=== PATIENT | female | born 1940 | race Caucasian/White ===

== ENCOUNTER 2017-01-20 19:00 | Observation (INO) ==
[2017-01-20] MEDS ORDERED: ALBUTEROL/IPRATROPIUM 3 ML NEB RESP TX STA (19:24)
--- NOTE | 2017-01-20 19:26 | EKG Report ---
Stationary ECG Study [facility] ER Test Date: 01/20/2017 7:06:26 PM Pat Name: JAY HOUGH Department: Room: Gender: F [employer]: jessica : 1940 Requested by: Rakesh Beckman Order Number: [id number] Reading MD: CURT HAWKINS Intervals [place] Rate: 108 P: 71 [place]: 143 QRS: 269 QRSD: 184 T: 71 QT: 378 QTc: 441 Interpretive Statements ELECTRONIC VENTRICULAR PACEMAKER Electronically Signed On 01-20-17 20:44:59 CDT by CURT HAWKINS [email or web address]
[2017-01-20] MEDS ORDERED: ALBUTEROL 2.5 MG/3 ML NEB RESP TX SCH (19:30)
[2017-01-20] MEDS ORDERED: ALBUTEROL 2.5 MG/3 ML NEB RESP TX STA (19:40)
[2017-01-20] MEDS ORDERED: ALBUTEROL 2.5 MG/3 ML NEB RESP TX ONE (19:42)
[2017-01-20 19:53] LABS: Basophils % 0.4 % (0.0-0.8); Eosinophils # 0.6 10*3/uL (0.0-0.87); Eosinophils % 7.4 % (0.00-10.9); Hematocrit 32.2 VOL% (35.7-47.0); Hemoglobin 11.3 GM/DL (12.0-16.0); Immature Granulocytes % 0.4 %; Immature Granulocytes Absolute 0.03 #; Lymphocytes # 1.5 10*3/uL (1.4-4.0); Lymphocytes % 19.8 % (21.3-54.2); Mean Corpuscular HGB Conc 35.1 GM/DL (32-36); Mean Corpuscular Hemoglobin 32 PG (27-34); Mean Corpuscular Volume 89.7 FL (87-102); Mean Platelet Volume 9.8 FL (9.6-12.0); Monocytes # 0.7 10*3/uL (0.11-0.8); Monocytes % 9.2 % (1.7-12.7); Neutrophils # 4.8 10*3/uL (1.4-7.4); Neutrophils % 62.8 % (38.7-73.9); Platelet Count 220 T/CUMM (130-400); Red Blood Count 3.59 MC/CUMM (3.8-5.5); Red Cell Distribution Width 13.7 % (9.3-17.3); White Blood Count 7.6 T/CUMM (4-12)
--- NOTE | 2017-01-20 20:14 | XRay Report ---
2 view chest 01/20/2017 7: 50 PM Indication: Shortness of breath Comparison: August 07, 2016 Findings: Cardiomediastinal contours are stable with underlying cardiomegaly, plaquing arch and no change in defibrillator placement. Chronic coarsening of interstitial. No superimposed consolidative or congestive process. No acute osseous abnormalities. Visualized upper abdomen demonstrates no acute pathology. Impression: No acute cardiopulmonary findings PROCEDURE INTERPRETED AT [facility] DEPARTMENT OF RADIOLOGY Final Report Signed by: Benjamín Kerns
[2017-01-20 20:25] LABS: Alanine Aminotransferase 20 U/L (13-56); Albumin 3.7 G/DL (3.4-5.0); Alkaline Phosphatase 76 U/L (45-117); Aspartate Amino Transferase 20 U/L (0-37); Bilirubin,Total < 0.39 MG/DL (0.2-1.0); Blood Urea Nitrogen 44 MG/DL (7-18); Calcium 9.1 MG/DL (8.5-10.1); Glucose 122 MG/DL (74-106); Osmolality,Calculated 275.5 MOS/KG (273-304); Potassium 4.9 MMOL/L (3.5-5.1); Sodium 132 MMOL/L (136-145); Total Protein 7.1 G/DL (6.4-8.3)
[2017-01-20 20:28] LABS: Troponin I Only 0.624 NG/ML (0.00-0.045)
[2017-01-20] MEDS ORDERED: ENOXAPARIN 60 MG/0.6 ML SYRINGE SUBCUT STA (20:41)
[2017-01-20 20:42] LABS: Apearance,Urine CLEAR (Clear); Bilirubin,Urine Negative (Negative); Blood, Urine Negative (Negative); Glucose,Urine (UA) Negative (Negative); Ketones,Urine Negative (Negative); Mucus,Urine Occasional /LPF (Occasional); Nitrite,Urine Negative (Negative); Protein,Urine Negative; RBC,Urine 1 /HPF (0-4); Squamous Epithelial Cell,Urine Occasional /HPF (0-10); Urine Color Yellow (Yellow); Urine Specific Gravity 1.006 (1.001-1.035); Urine Urobilinogen < 2.0 EU/DL (0.2-1.0); WBC,Urine 2 /HPF (0-6)
[2017-01-20] MEDS ORDERED: ASPIRIN 325 MG TABLET PO STA (20:42)
[2017-01-20] MEDS ORDERED: ENOXAPARIN 60 MG/0.6 ML SYRINGE ONE (20:44)
[2017-01-20] MEDS ORDERED: ASPIRIN 325 MG TABLET ONE (20:45)
[2017-01-20] MEDS ORDERED: cefTRIAXone 1,000 MG in SODIUM CHLORIDE 0.9% 100 ML IV STA (20:56)
[2017-01-20] MEDS ORDERED: FUROSEMIDE 40 MG/4 ML VIAL IV STA (21:01)
[2017-01-20] MEDS ORDERED: MAGNESIUM SULF RIDER 4 GM in PREMIX 1 EACH IV PRN (21:10)
[2017-01-20] MEDS ORDERED: MAGNESIUM SULF RIDER 2 GM in PREMIX 1 EACH IV PRN (21:10)
[2017-01-20] MEDS ORDERED: ONDANSETRON 4 MG/2 ML VIAL IV PRN (21:10)
--- NOTE | 2017-01-20 21:10 | Emergency Department Note ---
IAleksandr Brittany, am scribing for, and in the presence of, Rakesh Walker MD 20:00. IAaron Kevin Lee, MD, personally performed the services described in this documentation, ascribed by Venessa Brandon in my presence, and it is both accurate and complete . Arrival - Arrival Chief Complaint: Chest Pain Stated Complaint: Heart ED Nursing Triage Note: pt to triage with c/o of tightness in her chest. pt reports pain in upper portion of her chest. pt has hx of chf. pt denies fever, n /v, dizziness. Mode of Arrival: Wheelchair Limitations: No Limitations Source: Patient, Family Time Seen by Provider: 01/20/17 19:23 - History of Present Illness HPI Narrative: This is a 76 y/o white female,who presents to the ED with c/o chest tightness which started around a week ago. She states she started out coughing and was seen by Dr. Thomas and was started on ABX. She denies a fever. She states the tightness is more to the upper chest area. She states, "I feel like my oxygen is not normal." She states she was nauseated after lunch but she notes she took OTC meds and now the nausea has resolved. Her family notes Home health came out on the and things were "good". Her family states pt's O2 levels are normally 97. Pt has no other complaints/pain in the ED at this time. Pt has a PMhx of CHF, CVA, HTN, pacemaker, TIA, macular degeneration, COPD, dyslipidemia , renal insufficiency, GERD, and hernia to the left groin. Pt has had a cardiac cath, eye surgery, appendectomy, colonoscopy, internal defibrillator, and gynecologic surgery. Pt has a family medical hx of diabetes, stroke, and heart disease. Pt is a former smoker. Onset (ago): week(s) (Per family, "Over a week ago.") Consistency: constant Severity: moderate Quality: other (Tightness) Allergies/Adverse Reactions: Allergies Allergy/AdvReac Type Severity Reaction Status Date / Time No Known Allergies Allergy Verified 01/20/17 19:12 Home Medications: Home Medications Medication Instructions Recorded Confirmed Type Aspirin [Ecotrin] 81 mg PO QPM 09/03/14 01/20/17 History Clopidogrel [Plavix] 75 mg PO QAM 09/03/14 01/20/17 History Montelukast Tab [Singulair Tab] 10 mg PO BEDTIME 09/03/14 01/20/17 History Multivitamin/Iron/Folic Acid [One 0.5 each PO BID 09/03/14 01/20/17 History Daily Plus Iron Tablet] Simvastatin [Zocor] 20 mg PO BEDTIME 09/03/14 01/20/17 History ACETAMIN/diphenhydrAMIN 500-25 0.5 tablet PO BEDTIME PRN 07/20/16 01/20/17 History [Tylenol PM] Multivitamin (Ocuvite) [Ocuvite] 1 tablet PO BID 07/20/16 01/20/17 History Carvedilol [Coreg] 6.25 mg PO BID #30 tablet 07/25/16 01/20/17 Rx Digoxin Tab [Lanoxin Tab] 0.125 mg PO DAILY@1300 #30 tablet 08/14/16 01/20/17 Rx Furosemide Tab [Lasix Tab] 40 mg PO BID DIURETIC #60 tablet 08/14/16 01/20/17 Rx hydrALAZINE TAB [Apresoline Tab] 25 mg PO TID #90 tablet 08/14/16 01/20/17 Rx Albuterol Inhaler [Proventil 2 puff INH Q6H PRN 01/20/17 01/20/17 History Inhaler] Docusate Sodium Cap [Colace Cap] 100 mg PO BID PRN 01/20/17 01/20/17 History Isosorbide Mononitrate [Imdur] 30 mg PO QAM 01/20/17 01/20/17 History Omeprazole [Omeprazole] 40 mg PO QAM 01/20/17 01/20/17 History Potassium Chloride Cap/Tab [K Dur] 10 meq PO QAM 01/20/17 01/20/17 History Sacubitril/Valsartan [Entresto 24 1 tablet PO BID 01/20/17 01/20/17 History mg-26 mg Tablet] Spironolactone [Aldactone] 25 mg PO QAM 01/20/17 01/20/17 History Temazepam [Restoril] 7.5 mg PO BEDTIME 01/20/17 01/20/17 History Review of System - Review of System 12 point system: reviewed and no additional remarkable complaints except as stated - Review of System Constitutional: Absent: fever Respiratory: Present: cough. Absent: respiratory distress Cardiovascular: Present: chest pain. Absent: dyspnea on exertion Medical,Surgical,& Family Hx - Medical History Cardio: History of: CHF, Hypertension, Pacemaker, Cardiovascular Problems (DR GRAY) No history of: CAD, [place] Neurology: History of: Cerebrovascular Accident, TIA () No history of: Seizures HEENT: History of: Ear Problem (RT HEARING AID), Eye Problem (cataract), HEENT Problems (macular degeneration) Endocrine: History of: Dyslipidemia Respiratory: History of: Bronchitis (CHRONIC), COPD, Intubation (06/2016), Respiratory Problems (FLU VAC- 2015; PNUE VAC- 2011) Renal: History of: Renal Problems (renal insufficiency) Gastrointestinal: History of: GERD, GI Problems (HERNIA LEFT GROIN) Other: History of: Miscellaneous Medical Problems (PANCREAS SURGERY 1995) - Surgical History Cardiac Surgeries: Sugical HX of: Cardiac Catheterization, Internal Defibrillator (2013) HEENT Surgeries: Surgical HX of: Eye Surgery (BILATERAL CATARACT SURERY) Abdominal Surgeries: Surgical HX of: Appendectomy, Colonoscopy Reproductive Surgeries: Surgical HX of;: Gynecologic Surgery (UTERINE SUSPENSION ) Orthopedic Surgeries: Surgical HX of;: Implanted Devices (pacemaker) - Family History Family History: Reports;: Family Diabetes (Mother), Family Heart Disease ( Brother), Family Stroke (Mother) - Social History Smoking Status: Never smoker Frequency of Alcohol Use: None Type of Drug Use: None Exam Vital Signs: Vital Signs Temperature 98.6 F 01/20/17 19:05 Pulse Rate 109 H 01/20/17 19:05 Respiratory Rate 18 01/20/17 20:31 Blood Pressure 135/55 01/20/17 19:05 O2 Sat by Pulse Oximetry 94 L 01/20/17 19:05 - General General appearance: alert, in no apparent distress - Head Head exam: Present: atraumatic, normal inspection - Eye Eye exam: Present: PERRL, EOMI. Absent: nystagmus - ENT ENT exam: Present: mucous membranes moist - Neck Neck exam: Present: full ROM, trachea midline. Absent: tenderness - Chest Chest inspection: Present: symmetric chest wall rise. Absent: tenderness - Respiratory Respiratory exam: Present: wheezes. Absent: normal lung sounds bilaterally, respiratory distress - Cardiovascular Cardiovascular exam: Present: regular rate, normal rhythm, normal heart sounds. Absent: murmur, rubs, gallop, clicks, JVD - Abdominal Exam Abdominal exam: Present: soft, normal bowel sounds. Absent: tenderness - Rectal Exam Rectal exam: Present: deferred - Extremities Exam Extremities exam: Present: full ROM, normal capillary refill. Absent: pedal edema - Back Exam Back exam: Present: full ROM, tenderness. Absent: muscle spasm, rashes - Neurological Exam Neurological exam: Present: alert, oriented X3, CN II-XII intact. Absent: motor sensory deficit - Psychiatric Psychiatric exam: Present: normal affect, normal mood. Absent: depressed, agitated, anxious, flat affect, manic - Skin Skin exam: Present: warm, dry, intact, normal color. Absent: rash, cyanosis, diaphoresis Course Course Narrative: will admit for IV abx and trend trops Results - Labs CBC & BMP: 01/20/17 19:39 01/20/17 19:39 Lab Results: I have reviewed the patients labs - Diagnostic Findings Procedure: Chest x-ray: report reviewed by me (No acute cardiopulmonary findings ) Disposition Clinical Impression: Chest pain, NSTEMI (non-ST elevated myocardial infarction), CHF (congestive heart failure), Bronchitis Case discussed with: patient Disposition: Still a Patient Condition: Stable
[2017-01-20] MEDS ORDERED: TEMAZEPAM 7.5 MG CAPSULE PO PRN (21:12)
[2017-01-20] MEDS ORDERED: cefTRIAXone 1,000 MG VIAL ONE (21:29)
[2017-01-20] MEDS ORDERED: SODIUM CHLORIDE 0.9% 100 ML IV ONE (21:29)
[2017-01-20] MEDS ORDERED: FUROSEMIDE 100 MG/10 ML VIAL ONE (21:29)
[2017-01-21 04:42] LABS: Basophils % 0.3 % (0.0-0.8); Eosinophils # 0.7 10*3/uL (0.0-0.87); Eosinophils % 10.3 % (0.00-10.9); Hematocrit 29.4 VOL% (35.7-47.0); Hemoglobin 10.3 GM/DL (12.0-16.0); Immature Granulocytes % 0.1 %; Immature Granulocytes Absolute 0.01 #; Lymphocytes % 29.1 % (21.3-54.2); Mean Corpuscular Hemoglobin 32 PG (27-34); Mean Corpuscular Volume 89.9 FL (87-102); Mean Platelet Volume 10.1 FL (9.6-12.0); Monocytes # 0.8 10*3/uL (0.11-0.8); Monocytes % 11.1 % (1.7-12.7); Neutrophils # 3.4 10*3/uL (1.4-7.4); Neutrophils % 49.1 % (38.7-73.9); Platelet Count 192 T/CUMM (130-400); Red Blood Count 3.27 MC/CUMM (3.8-5.5); Red Cell Distribution Width 13.7 % (9.3-17.3); White Blood Count 6.9 T/CUMM (4-12)
[2017-01-21 05:38] LABS: Albumin 3.1 G/DL (3.4-5.0); Bilirubin,Total 0.9 MG/DL (0.2-1.0); Osmolality,Calculated 279.1 MOS/KG (273-304); Potassium 4.7 MMOL/L (3.5-5.1); Total Protein 6.6 G/DL (6.4-8.3)
--- NOTE | 2017-01-21 07:20 | EKG Report ---
Stationary ECG Study [facility] Test Date: 01/21/2017 7:19:10 AM Pat Name: JAY HOUGH Department: Room: 264 Gender: F Video Software Engineer: ALEX : 1940 Requested by: Rakesh Beckman Order Number: [id number] Reading MD: GRISELDA SANTOS Intervals [place] Rate: 81 P: 63 NE: 192 QRS: 141 QRSD: 179 T: -44 QT: 419 QTc: 457 Interpretive Statements SINUS RHYTHM WITH ELECTRONIC VENTRICULAR PACEMAKER ABNORMAL RHYTHM ECG Electronically Signed On 01-25-17 06:20:16 CDT by GRISELDA SANTOS [email or web address]
[2017-01-21] MEDS: PANTOPRAZOLE 40 MG TABLET PO SCH ×2 (07:50→08:57)
--- NOTE | 2017-01-21 08:38 | Cardiology History & Physical ---
Assessment and Plan (1) Chest pain, non-cardiac Status: Acute Assessment and plan: Certainly her pain is noncardiac clinically. She had normal cardiac catheterization 5 months ago without coronary disease and widely patent coronary arteries. Current Visit: Yes (2) Chronic anemia Status: Chronic Assessment and plan: This is generally unchanged. Current Visit: Yes (3) Dyspnea and respiratory abnormalities Status: Chronic Assessment and plan: She has chronic lung disease and is followed by Dr. Haro. She has acute on chronic issue at this time. Will ask Dr. Haro to see the patient. Current Visit: No (4) COPD (chronic obstructive pulmonary disease) Status: Chronic Assessment and plan: There is a chronic issue with recurrent respiratory problems. She is followed by Dr. Haro. Current Visit: No Qualifiers: COPD type: COPD with acute exacerbation Qualified Code(s): J44.1 - Chronic obstructive pulmonary disease with (acute) exacerbation (5) Nonischemic cardiomyopathy Status: Chronic Assessment and plan: This does not appear to be an issue at this time in terms of her hospitalization. Her chest x-ray does not reveal any evidence of acute cardiopulmonary exacerbation or issues. Current Visit: No (6) Biventricular automatic implantable cardioverter defibrillator in situ Status: Chronic Assessment and plan: This is followed as an outpatient. Current Visit: No (7) Renal insufficiency Status: Chronic Assessment and plan: Chronic and unchanged. Current Visit: No (8) Bronchitis Status: Acute Assessment and plan: This is probably acute issue. May be the cause of her present symptomatology. Last Dr. Thomas to see the patient. Current Visit: Yes (9) Elevated brain natriuretic peptide (BNP) level Status: Chronic Assessment and plan: This is actually chronic. This is prior related to her chronic LV dysfunction. Current Visit: Yes History of Present Illness Chief complaint: Chest tightness History of present illness: Primary [place] guide: Dr. Isidro christian Ms. Major is a 76 year old female who is admitted through the emergency room yesterday p.m. with upper chest tightness. The patient's history of recent she has been having a cough he was seen by Dr. Haro last week or at least his nurse practitioner. She was given Atrovent nasal spray. She is not having any significant sputum production. She denies fever chills. The patient apparently about Saturday developed some upper chest tightness would wax and wane. This may be exacerbated by her cough. She was brought to the hospital emergency room last p.m. and evaluated. There she apparently received antibiotics as well as IV Lasix and bronchodilator therapy. Since admission she is done well. She may have had a couple episodes reducible upper chest tightness. Since admission her evaluation including 2 chest x-rays revealed no cardiopulmonary acute issues or evidence of heart failure coronary vascular congestion. She has cardiomegaly which is chronic. Her BNP is significantly elevated but is chronically elevated. She has a known ejection fraction is severely diminished with ejection fraction measured by cardiac catheterization and echocardiogram July 2016 of 10-20% at best. She has chronic LV dysfunction with chronically elevated BNP's. She has a dual-chamber biventricular AICD. Her cardiac catheterization July 2016 revealed widely patent coronary arteries but very tortuous. Her cardiomyopathy is apparently nonischemic. Her lab work in addition to her elevated BMPs which are chronic also reveals anemia that is chronic as well. Renal function reveals elevated creatinine as well as BUN which is been up and down previously. Patient's peak troponin is 0.624 admission and is nondiagnostic and her present situation. Should be noted prior to admission which she was having no heart failure symptomatology without PND orthopnea. She does not have any lower extremity edema. Her O2 saturations typically in the upper 90s and apparently had decreased some prior to admission. O2 saturations since admission has been 99 and 98%. This morning during the patient is doing well. The significant note that she has multiple medical issues including her nonischemic cardiomyopathy with episodes of congestive heart failure and required intubation and ventilation in July 2016. She also has had CVA previously as well as a history of hypertension. She has her pacemaker which is a dual-chamber biventricular AICD. She has had chronic COPD as well as dyslipidemia. Home Medications Medication Instructions Recorded Confirmed Type Aspirin [Ecotrin] 81 mg PO QPM 09/03/14 01/20/17 History Clopidogrel [Plavix] 75 mg PO QAM 09/03/14 01/20/17 History Montelukast Tab [Singulair Tab] 10 mg PO BEDTIME 09/03/14 01/20/17 History Multivitamin/Iron/Folic Acid [One 0.5 each PO BID 09/03/14 01/20/17 History Daily Plus Iron Tablet] Simvastatin [Zocor] 20 mg PO BEDTIME 09/03/14 01/20/17 History ACETAMIN/diphenhydrAMIN 500-25 0.5 tablet PO BEDTIME PRN 07/20/16 01/20/17 History [Tylenol PM] Multivitamin (Ocuvite) [Ocuvite] 1 tablet PO BID 07/20/16 01/20/17 History Carvedilol [Coreg] 6.25 mg PO BID #30 tablet 07/25/16 01/20/17 Rx Digoxin Tab [Lanoxin Tab] 0.125 mg PO DAILY@1300 #30 tablet 08/14/16 01/20/17 Rx Furosemide Tab [Lasix Tab] 40 mg PO BID DIURETIC #60 tablet 08/14/16 01/20/17 Rx hydrALAZINE TAB [Apresoline Tab] 25 mg PO TID #90 tablet 08/14/16 01/20/17 Rx Albuterol Inhaler [Proventil 2 puff INH Q6H PRN 01/20/17 01/20/17 History Inhaler] Docusate Sodium Cap [Colace Cap] 100 mg PO BID PRN 01/20/17 01/20/17 History Isosorbide Mononitrate [Imdur] 30 mg PO QAM 01/20/17 01/20/17 History Omeprazole [Omeprazole] 40 mg PO QAM 01/20/17 01/20/17 History Potassium Chloride Cap/Tab [K Dur] 10 meq PO QAM 01/20/17 01/20/17 History Sacubitril/Valsartan [Entresto 24 1 tablet PO BID 01/20/17 01/20/17 History mg-26 mg Tablet] Spironolactone [Aldactone] 25 mg PO QAM 01/20/17 01/20/17 History Temazepam [Restoril] 7.5 mg PO BEDTIME 01/20/17 01/20/17 History Allergies Allergy/AdvReac Type Severity Reaction Status Date / Time No Known Allergies Allergy Verified 01/20/17 19:12 Review of systems: Constitutional: Denies anorexia, chills, fatigue, fever, frequent falls, night sweats, weight gain, weight loss Eyes: Denies visual changes or loss of vision Ears: Denies decreased hearing, vertigo Nose, mouth and throat: Recent nasal congestion. Neck: Denies thyromegaly or masses. No stiffness. Cardiovascular: as per HPI Respiratory: Recent cough and congestion with a history of COPD. Gastrointestinal: Denies abdominal pain, constipation, dyspepsia, dysphagia, hematemesis, hematochezia, melena, nausea, vomiting Genitourinary: Denies dysuria, hematuria, nocturia Musculoskeletal: Denies arthralgias, joint swelling, muscle weakness, myalgias Neurological: denies abnormal gait, abnormal speech, confusion, seizures, frequent falls, headaches, syncope Psychiatric: Denies anxiety, confusion, depression Endocrine: Denies cold intolerance, fatigue, heat intolerance Hematologic/Lymphatic: Denies easy bleeding, easy bruising; patient with chronic anemia. Dermatologic: Denies Rash, itching, shingles Medical,Surgical,& Family Hx - Medical History Cardio: History of: CHF, Hypertension, Pacemaker, Cardiovascular Problems (DR RGAY) No history of: CAD, [place] Neurology: History of: Cerebrovascular Accident, TIA () No history of: Seizures HEENT: History of: Ear Problem (RT HEARING AID), Eye Problem (cataract), HEENT Problems (macular degeneration) Endocrine: History of: Dyslipidemia Respiratory: History of: Bronchitis (CHRONIC), COPD, Intubation (06/2016), Respiratory Problems (FLU VAC- 2015; PNUE VAC- 2011) Renal: History of: Renal Problems (renal insufficiency) Gastrointestinal: History of: GERD, GI Problems (HERNIA LEFT GROIN) Other: History of: Miscellaneous Medical Problems (PANCREAS SURGERY 1995) - Surgical History Cardiac Surgeries: Sugical HX of: Cardiac Catheterization, Internal Defibrillator (2013) HEENT Surgeries: Surgical HX of: Eye Surgery (BILATERAL CATARACT SURERY) Abdominal Surgeries: Surgical HX of: Appendectomy, Colonoscopy Reproductive Surgeries: Surgical HX of;: Gynecologic Surgery (UTERINE SUSPENSION ) Orthopedic Surgeries: Surgical HX of;: Implanted Devices (pacemaker) - Family History Family History: Reports;: Family Diabetes (Mother), Family Heart Disease ( Brother), Family Stroke (Mother) - Social History Smoking Status: Never smoker Frequency of Alcohol Use: None Type of Drug Use: None Marital Status: Lives With:: Spouse Functional capacity: independent ambulation Cardiology Physical Exam - Constitutional Vitals: Vital Signs Temp Pulse Resp BP Pulse Ox 97.6 F 76 18 119/49 98 01/21/17 08:00 01/21/17 08:00 01/21/17 08:00 01/21/17 08:00 01/21/17 08:00 Intake and Output 01/20/17 01/21/17 01/21/17 23:59 07:59 15:59 Intake Total 100 / 100 60 / 60 Output Total 400 / 400 450 / 450 Balance -300 / -300 -390 / -390 Intake: IV 100 / 100 Rocephin 1,000 mg In Ns 100 / 100 100 ml @ 200 mls/hr IV 1X ED STA Rx#:[id number] Oral 60 / 60 Output: Urine 400 / 400 450 / 450 Other: Voiding Method Bedside Commode Bedside Commode Weight 54.658 kg 54.771 kg Patient Weight 01/21/17 23:59 Weight 54.771 kg Exam: General appearance: normal weight, no acute distress, she is lying flat in bed. Head exam: normal inspection, atraumatic Eye exam: Pupils are equal and reactive. EOMI. There is no trauma. Ear exam: Anatomically normal. Normal auditory acuity to conversation. Oral exam: No significant oral lesions. Neck exam: normal inspection no JVD. No carotid bruit. Trachea is in midline. Respiratory exam: clear to auscultation bilaterally posteriorly and anteriorly with good air movement. No rales, rhonchi or wheezes. Cardiovascular exam: regular rate and rhythm, 1/6 systolic murmur left upper sternal border. No precordial lift. No bruits over the major arteries. Chest wall/torso: Anatomically normal. No tenderness, deformity Peripheral Pulses: 2+ throughout. GI/Abdominal exam: normal bowel sounds, soft and nontender, no abdominal bruits or pulsatile masses. Musculoskeletal/Extremities exam: normal inspection without edema or cyanosis. No deformities or trauma. Neurological exam: alert, oriented X3. There is no gross neurologic deficits. Psychiatric exam: normal affect, normal mood. Cognitive function is grossly intact. Skin exam: normal color, warm. No rashes or other skin lesions. Result/EKG - Labs CBC & BMP: 01/21/17 04:01 01/21/17 04:01 Lab Results: I have reviewed the past 24 hour labs Labs: Laboratory Results - last 24 hr 01/20/17 01/20/17 01/20/17 19:39 19:39 19:39 WBC 7.6 RBC 3.59 L Hgb 11.3 L Hct 32.2 L MCV 89.7 MCH 32 MCHC 35.1 RDW 13.7 Plt Count 220 MPV 9.8 Neut % (Auto) 62.8 Lymph % (Auto) 19.8 L [place] % (Auto) 9.2 Eos % (Auto) 7.4 Baso % (Auto) 0.4 Neut # (Auto) 4.8 Lymph # (Auto) 1.5 [place] # (Auto) 0.7 Eos # (Auto) 0.6 Baso # (Auto) 0.0 Immature Gran % 0.4 Nucleated RBC % 0.0 Immature Gran # 0.03 Nucleated RBCs # 0.00 Immature Plt Fraction 0.0 Sodium 132 L Potassium 4.9 Chloride 96 L Carbon Dioxide 30 Anion Gap 10.9 BUN 44 H Creatinine 1.90 H GFR Calculation 24 BUN/Creatinine Ratio 23.00 H Glucose 122 H Calculated Osmolality 275.5 Calcium 9.1 Total Bilirubin < 0.39 AST 20 ALT 20 Alkaline Phosphatase 76 Troponin I 0.624 H B-Natriuretic Peptide 1394 H Total Protein 7.1 Albumin 3.7 Globulin 3.4 Albumin/Globulin Ratio 1.0 L Urine Color Urine Appearance Urine pH Ur Specific [place] Urine Protein Urine Glucose (UA) Urine Ketones Urine Blood Urine Nitrate Urine Bilirubin Urine Urobilinogen Urine Leukocytes Urine RBC Urine WBC Ur Squamous Epith Cells Urine Mucus Ur Culture Indicated? 01/20/17 01/21/17 01/21/17 19:39 04:01 04:01 WBC 6.9 RBC 3.27 L Hgb 10.3 L Hct 29.4 L MCV 89.9 MCH 32 MCHC 35.0 RDW 13.7 Plt Count 192 MPV 10.1 Neut % (Auto) 49.1 Lymph % (Auto) 29.1 [place] % (Auto) 11.1 Eos % (Auto) 10.3 Baso % (Auto) 0.3 Neut # (Auto) 3.4 Lymph # (Auto) 2.0 [place] # (Auto) 0.8 Eos # (Auto) 0.7 Baso # (Auto) 0.0 Immature Gran % 0.1 Nucleated RBC % 0.0 Immature Gran # 0.01 Nucleated RBCs # 0.00 Immature Plt Fraction 0.0 Sodium 135 L Potassium 4.7 Chloride 100 Carbon Dioxide 31 Anion Gap 8.7 BUN 42 H Creatinine 1.90 H GFR Calculation 24 BUN/Creatinine Ratio 22.00 H Glucose 86 Calculated Osmolality 279.1 Calcium 9.0 Total Bilirubin 0.90 AST 18 ALT 16 Alkaline Phosphatase 59 Troponin I B-Natriuretic Peptide Total Protein 6.6 Albumin 3.1 L Globulin 3.5 Albumin/Globulin Ratio 0.8 L Urine Color Yellow Urine Appearance Clear Urine pH 8.0 Ur Specific [place] 1.006 Urine Protein Negative Urine Glucose (UA) Negative Urine Ketones Negative Urine Blood Negative Urine Nitrate Negative Urine Bilirubin Negative Urine Urobilinogen < 2.0 H Urine Leukocytes Negative Urine RBC 1 Urine WBC 2 Ur Squamous Epith Cells Occasional Urine Mucus Occasional Ur Culture Indicated? Not indicated 01/21/17 01/21/17 04:01 04:01 WBC RBC Hgb Hct MCV MCH MCHC RDW Plt Count MPV Neut % (Auto) Lymph % (Auto) [place] % (Auto) Eos % (Auto) Baso % (Auto) Neut # (Auto) Lymph # (Auto) [place] # (Auto) Eos # (Auto) Baso # (Auto) Immature Gran % Nucleated RBC % Immature Gran # Nucleated RBCs # Immature Plt Fraction Sodium Potassium Chloride Carbon Dioxide Anion Gap BUN Creatinine GFR Calculation BUN/Creatinine Ratio Glucose Calculated Osmolality Calcium Total Bilirubin AST ALT Alkaline Phosphatase Troponin I 0.577 H B-Natriuretic Peptide 1796 H Total Protein Albumin Globulin Albumin/Globulin Ratio Urine Color Urine Appearance Urine pH Ur Specific [place] Urine Protein Urine Glucose (UA) Urine Ketones Urine Blood Urine Nitrate Urine Bilirubin Urine Urobilinogen Urine Leukocytes Urine RBC Urine WBC Ur Squamous Epith Cells Urine Mucus Ur Culture Indicated? - Impressions Impressions: Later cardiogram was sinus rhythm with electronic ventricular pacing. Ventricular pacemaker is tracking the atrium.
[2017-01-21] MEDS ORDERED: ACETAMINOPHEN/diphenhydrAMINE 500-25 MG TABLET PO PRN (08:52)
[2017-01-21] MEDS ORDERED: DOCUSATE SODIUM 100 MG CAPSULE PO PRN (08:52)
[2017-01-21] MEDS ORDERED: ALBUTEROL 2.5 MG/3 ML NEB RESP TX PRN (08:52)
[2017-01-21] MEDS ORDERED: PANTOPRAZOLE 40 MG TABLET PO SCH (09:00)
[2017-01-21] MEDS ORDERED: MULTIVITAMIN (CENTRUM) TABLET PO SCH (09:00)
[2017-01-21] MEDS ORDERED: CARVEDILOL 6.25 MG TABLET PO SCH (09:00)
[2017-01-21] MEDS ORDERED: SPIRONOLACTONE 25 MG TABLET PO SCH (09:00)
[2017-01-21] MEDS ORDERED: MULTIVITAMIN (OCUVITE) TABLET PO SCH (09:00)
[2017-01-21] MEDS ORDERED: SACUBITRIL/VALSARTAN 49-51 MG TABLET PO SCH (09:00)
[2017-01-21] MEDS ORDERED: POTASSIUM CHLORIDE 10 MEQ TABLET PO SCH (09:00)
[2017-01-21] MEDS ORDERED: ISOSORBIDE MONONITRATE 30 MG TABLET PO SCH (09:00)
[2017-01-21] MEDS ORDERED: CLOPIDOGREL 75 MG TABLET PO SCH (09:00)
[2017-01-21] MEDS: hydrALAZINE 25 MG TABLET PO SCH ×2 (09:44→16:08)
--- NOTE | 2017-01-21 09:47 | XRay Report ---
History: Shortness of breath Date: 01/21/2017 Study: Chest x-ray AP portable Comparison exam: 01/20/2017 There is continued cardiomegaly. The mediastinal contours are unchanged. The pulmonary vasculature is upper normal, though unchanged. A left subclavian multiple lead transvenous pacemaker defibrillator device is noted as before. There is some coarsening of interstitial markings in the lower lungs bilaterally as before, left more than right. There are some mild scattered emphysematous changes. There is parenchymal and pleural scarring in either lung apex. There is no pleural effusion. Osseous structures are similar. Impression: Cardiomegaly without overt CHF. Stable interstitial changes in the lung bases. No new or worsening infiltrate PROCEDURE INTERPRETED AT [facility] DEPARTMENT OF RADIOLOGY Final Report Signed by: Dr. Amada Hooker
--- NOTE | 2017-01-21 10:31 | Pulmonology Consult Note ---
History of Present Illness Chief complaint: Cough. Shortness of breath. History of present illness: Mario Hightower, [facility], acting as scribe for Dr. Oscar Thomas Mrs. Major is a 76-year-old white female who we have been asked to see in pulmonary consultation for evaluation and treatment. The request for consultation was made by Dr. Chang. Mrs. Major is the mother of Peggy Chapman who works at [employer]. In June 2016 Mrs. Major had a very prolonged and difficult hospitalization. We saw her in pulmonary consultation during that time. Over the course of the hospitalization she required intubation mechanical ventilation secondary to acute congestive heart failure which resulted in respiratory failure. She has a cardiac pacemaker cardiac defibrillator. Her EF at that time was approximately 10-20% by echocardiogram. She was [facility] by Mario Hightower, nurse practitioner, for follow-up. She was doing well at that time. Her only complaint was that of postnasal drip and allergic rhinitis. She was given Atrovent nasal spray. Last night she presented to [facility] emergency room with complaints of chest tightness. Apparently, prior to coming to the emergency room, her oxygenation at home was also reportedly said of normal for her at approximately 93% with her normal being approximately 97%. She was admitted for observation through the emergency room. She has been given IV Lasix in addition to her routine Lasix 40 mg p.o. twice daily. She was also given IV Rocephin. Today, she states that her breathing has improved. She was seen today along with her and 2 daughters. There has been no cardiac angina or palpitations. No bleeding from any site. No change in bowel or bladder habits. No TIA symptoms or syncope. Other than as noted above, her review of systems is otherwise negative. Allergies: None Home medications: See list Hospital medications: See list Past medical history: Positive for [facility]'s hospitalization 07/27/2016 through 08/14/2016 under the care of the regulator inspector. During that hospitalization she had pulmonary edema which required intubation and mechanical ventilation. On July 30 she underwent heart cath. Her ejection fraction was estimated to be 10- 15% but she had no significant coronary artery disease. Past history is also positive for bronchospastic disease, hyperlipidemia, high blood pressure, heart disease with past history of congestive heart failure, cardiac pacemaker, cardiac defibrillator, TIA in 1992 or 1993, gastroesophageal reflux disease, pancreatic surgery in 1995, appendectomy, and some type of gynecological surgery. Social history: The patient is . She has never smoked and does not use alcohol. Family history: Patient's mother had diabetes in her brother had heart disease. Her mother also had a stroke. Chest x-ray. Done 01/20/2017. My interpretation. Central vasculature is slightly engorged consistent with mild volume overload. Cardiomegaly. Chest x-ray. Done 01/21/2017. My interpretation. After diuresis, central vasculature has now returned to her normal. Cardiomegaly. Laboratory: White count is 6900 with 49.1% segs, 29.1% lymphs, 11.1% monos; H&H 10.3/29.4 with normal indices and normal red blood cell distribution width;; platelet count 192,000; creatinine 1.90, BUN 42, sodium 135, potassium 4.7; calcium 9.0, albumin 3.1, total protein 6.6; BNP initially 1394 now 1796; troponin 0 0.577; liver function tests within normal limits; urinalysis showed no evidence of infection. Home Medications Medication Instructions Recorded Confirmed Type Aspirin [Ecotrin] 81 mg PO QPM 09/03/14 01/20/17 History Clopidogrel [Plavix] 75 mg PO QAM 09/03/14 01/20/17 History Montelukast Tab [Singulair Tab] 10 mg PO BEDTIME 09/03/14 01/20/17 History Multivitamin/Iron/Folic Acid [One 0.5 each PO BID 09/03/14 01/20/17 History Daily Plus Iron Tablet] Simvastatin [Zocor] 20 mg PO BEDTIME 09/03/14 01/20/17 History ACETAMIN/diphenhydrAMIN 500-25 0.5 tablet PO BEDTIME PRN 07/20/16 01/20/17 History [Tylenol PM] Multivitamin (Ocuvite) [Ocuvite] 1 tablet PO BID 07/20/16 01/20/17 History Carvedilol [Coreg] 6.25 mg PO BID #30 tablet 07/25/16 01/20/17 Rx Digoxin Tab [Lanoxin Tab] 0.125 mg PO DAILY@1300 #30 tablet 08/14/16 01/20/17 Rx Furosemide Tab [Lasix Tab] 40 mg PO BID DIURETIC #60 tablet 08/14/16 01/20/17 Rx hydrALAZINE TAB [Apresoline Tab] 25 mg PO TID #90 tablet 08/14/16 01/20/17 Rx Albuterol Inhaler [Proventil 2 puff INH Q6H PRN 01/20/17 01/20/17 History Inhaler] Docusate Sodium Cap [Colace Cap] 100 mg PO BID PRN 01/20/17 01/20/17 History Isosorbide Mononitrate [Imdur] 30 mg PO QAM 01/20/17 01/20/17 History Omeprazole [Omeprazole] 40 mg PO QAM 01/20/17 01/20/17 History Potassium Chloride Cap/Tab [K Dur] 10 meq PO QAM 01/20/17 01/20/17 History Sacubitril/Valsartan [Entresto 24 1 tablet PO BID 01/20/17 01/20/17 History mg-26 mg Tablet] Spironolactone [Aldactone] 25 mg PO QAM 01/20/17 01/20/17 History Temazepam [Restoril] 7.5 mg PO BEDTIME 01/20/17 01/20/17 History Allergies Allergy/AdvReac Type Severity Reaction Status Date / Time No Known Allergies Allergy Verified 01/20/17 19:12 Exam (Pulmonay) H&P - Constitutional Vitals: Period Temp Pulse Resp BP Sys/Manning Pulse Ox Last 24 Hr 96.6 F-98.6 F 61-109 16-20 119-135/49-66 94-100 Exam: Psych: Oriented x 3; a pleasant and cooperative patient HEENT: Pupils, irises, sclera, conjunctiva, and eyelids are normal. The face is symmetrical without rash or masses. Lips, tongue, buccal mucosa, soft and hard palates, and phayrnx are WNL Neck: Symmetrical. Thyroid was not palpated. Lymphatics: No submandibular, cervical, or supraclavicular adenopathy Chest: Symmetrical without wheeze, rhonchi or rales Breasts: Deferred CV: Regular with a short grade 1/6 systolic ejection murmur at the left sternal border that does not radiate Arterial: Carotids with a good upstroke. There is no bruit. Upper extremity pulses are palpable. Lower extremity pulses are palpable. Venous: Exam of the neck, upper, and lower extremities is normal Abd: No appreciable organomegaly, masses, tenderness, or bruit; Bowel sounds are positive 4; The aorta was not palpated /Rectal: Deferred Extremities: No clubbing, cyanosis, edema, or obvious DVT; bilateral SONA hose are in use Skin: No cancerous or infectious lesions of the exposed, examined skin; the perineal area was not examined M/S: Age appropriate loss of the normal curvature of the cervical, thoracic, and lumbar spine Neurological: Cranial nerves are intact with decreased hearing acuity bilaterally; hearing aid on the right; Long tract motor function is intact; Sensory exam was not done; gait was not tested. The remainder of the exam was noncontributory. Impression: #1: Acute shortness of breath with chest tightness most likely secondary to acute fluid overload (acute congestive heart failure). Note, she feels better since been given IV Lasix and IV Rocephin. #2: Acute sinusitis #3: Nonischemic cardiomyopathy. Note, most recent EF estimated at 10-15% by echocardiogram. #4: Cardiac pacemaker and cardiac defibrillator #5: Chronic renal failure #6: Gastroesophageal reflux disease #7: See past history Plan: #1: We will treat her acute sinusitis with Ceftin 250 mg twice daily for 10 days #2: She will be scheduled for follow-up appointment in approximately 1 month with a chest x-ray, BMP, and BNP #3: As discussed with the patient and her family, it is okay from our standpoint for her to be discharged Medical,Surgical,& Family Hx - Medical History Cardio: History of: CHF, Hypertension, Pacemaker, Cardiovascular Problems (DR GRAY) No history of: CAD, [place] Neurology: History of: Cerebrovascular Accident, TIA () No history of: Seizures HEENT: History of: Ear Problem (RT HEARING AID), Eye Problem (cataract), HEENT Problems (macular degeneration) Endocrine: History of: Dyslipidemia Respiratory: History of: Bronchitis (CHRONIC), COPD, Intubation (06/2016), Respiratory Problems (FLU VAC- 2015; PNUE VAC- 2011) Renal: History of: Renal Problems (renal insufficiency) Gastrointestinal: History of: GERD, GI Problems (HERNIA LEFT GROIN) Other: History of: Miscellaneous Medical Problems (PANCREAS SURGERY 1995) - Surgical History Cardiac Surgeries: Sugical HX of: Cardiac Catheterization, Internal Defibrillator (2013) HEENT Surgeries: Surgical HX of: Eye Surgery (BILATERAL CATARACT SURERY) Abdominal Surgeries: Surgical HX of: Appendectomy, Colonoscopy Reproductive Surgeries: Surgical HX of;: Gynecologic Surgery (UTERINE SUSPENSION ) Orthopedic Surgeries: Surgical HX of;: Implanted Devices (pacemaker) - Family History Family History: Reports;: Family Diabetes (Mother), Family Heart Disease ( Brother), Family Stroke (Mother) - Social History Smoking Status: Never smoker Frequency of Alcohol Use: None Type of Drug Use: None Results - Labs CBC & BMP: 01/21/17 04:01 01/21/17 04:01
[2017-01-21] MEDS: CEFUROXIME 250 MG TABLET PO SCH ×2 (10:38→17:57)
[2017-01-21] MEDS ORDERED: DIGOXIN 0.125 MG TABLET PO SCH (13:00)
[2017-01-21] MEDS ORDERED: FUROSEMIDE 40 MG TABLET PO SCH (16:00)
[2017-01-21 16:24] VITALS: BP 123/60
--- NOTE | 2017-01-21 17:05 | Discharge Summary ---
Hospital Course - Hospital Course Hospital Course: Primary head of research & insights: Dr. Isidro Lombardo I, Mar Ramon, [facility], am acting as a scribe for Dr. Chang. Ms. Major is a 76 year old female who is admitted through the emergency room January 20, 2017 with upper chest tightness. The patient's history of recent she has been having a cough he was seen by Dr. Thomas, or his nurse practitioner, last week. She was given Atrovent. She presented to the ED with mild shortness of breath, having no significant sputum production, denied fevers or chills. It is felt that the chest tightness was exacerbated by her cough, bronchitis, possibly mild chronic CHF secondary to systolic dysfunction (EF 10- 15%) and diastolic dysfunction. NYHA class II. Cardiac biomarkers were stable , EKG stable as well. Dr. Thomas was consulted, saw the patient. During hospital stay she was given IV Rocephin, additional IV Lasix, SPO2 saturations were 93% to 96%. From a pulmonary standpoint, pulmonology feels as if she is stable for discharge. Having felt that she is met maximal medical therapy, she is being discharged home in stable condition to resume her same pre-admission medications. New medication: Cefuroxime tablets to 50 mg p.o. twice daily 7 days - Time spent with patient Time with patient DS: Greater than 30 minutes Diagnosis - Discharge Diagnosis (1) ICD (implantable cardioverter-defibrillator) in place Status: Chronic (2) Chronic renal insufficiency, stage III (moderate) Status: Chronic (3) CHF (congestive heart failure), NYHA class II Status: Chronic (4) NICM (nonischemic cardiomyopathy) Status: Chronic (5) Chest pain, non-cardiac Status: Chronic (6) Chronic anemia Status: Chronic (7) Bronchitis Status: Acute Specialty Discharge - Follow Up or Referrals Follow up with: Mario Hightower CFNP [Advanced Practice Nurse] - 1 Month Isidro Lombardo MD [Physician] - (2-3 weeks. BMp, Mg, CBC) Discharge Plan - Discharge Data Disposition: Disch To Home/Self Care Condition at Discharge: Stable Discharge Diet: heart healthy Activity: resume usual activities as tolerated Hygiene: no restrictions Weight Bearing at Discharge: full weight bearing Driving: not until seen by doctor Contact your physician if you experience:: fever over 101, Difficulty voiding, Redness or swelling, Nausea/Vomiting, Shortness of breath, Bleeding, pain uncontrolled by pain medications - Discharge Medications New Cefuroxime Tab [Ceftin] 250 mg PO BID #14 tablet Continue Montelukast Tab [Singulair Tab] 10 mg PO BEDTIME Multivitamin/Iron/Folic Acid [One Daily Plus Iron Tablet] 0.5 each PO BID Simvastatin [Zocor] 20 mg PO BEDTIME Clopidogrel [Plavix] 75 mg PO QAM Aspirin [Ecotrin] 81 mg PO QPM ACETAMIN/diphenhydrAMIN 500-25 [Tylenol PM] 0.5 tablet PO BEDTIME PRN PRN Reason: Sleep Carvedilol [Coreg] 6.25 mg PO BID #30 tablet Digoxin Tab [Lanoxin Tab] 0.125 mg PO DAILY@1300 #30 tablet Albuterol Inhaler [Proventil Inhaler] 2 puff INH Q6H PRN PRN Reason: Shortness Of Breath/Wheezing Docusate Sodium Cap [Colace Cap] 100 mg PO BID PRN PRN Reason: STOOL SOFTENER Omeprazole 40 mg PO QAM Sacubitril/Valsartan [Entresto 24 mg-26 mg Tablet] 1 tablet PO BID Temazepam [Restoril] 7.5 mg PO BEDTIME Potassium Chloride Cap/Tab [K Dur] 10 meq PO QAM Multivitamin (Ocuvite) [Ocuvite] 1 tablet PO BID Furosemide Tab [Lasix Tab] 40 mg PO BID DIURETIC #60 tablet hydrALAZINE TAB [Apresoline Tab] 25 mg PO TID #90 tablet Isosorbide Mononitrate [Imdur] 30 mg PO QAM Spironolactone [Aldactone] 25 mg PO QAM - Follow Up or Referral Follow Up: Mario Hightower CFNP [Advanced Practice Nurse] - 1 Month - Forms/Instructions Exam - Constitutional Vitals: Period Temp Pulse Resp BP Sys/Manning Pulse Ox Last 24 Hr 96.6 F-98.6 F 61-109 16-20 113-135/49-66 93-100 Exam: General: [Appears well with no apparent distress.] [Pleasant and cooperative. ] [Appears comfortable.] HEENT: [PERRL, normocephalic, atraumatic. Mucous membranes moist. No jaundice noted. Conjunctiva moist and clear, sclerae anicteric] Neck: No JVD/HJR, no thyromegaly or lymphadenopathy noted. No carotid bruit appreciated Cardiac: [Regular rate and rhythm.] [No murmur rub or gallop.] Lungs: [Clear to auscultation without accessory muscle use to assist the respiratory pattern.] Using oxygen intermittently Abdomen: Soft, bowel sounds normoactive. Nontender and nondistended. No abdominal bruit or thrill noted. No masses noted. Musculoskeletal: No fluid collection. Decreased range of motion is noted. Extremities: No clubbing, cyanosis noted. [ No edema noted.] Upper extremity pulses 2+. Lower extremity pulses 2+. Capillary refill less than 3 seconds. Skin: No unusual lesions or rashes. No skin breakdown appreciated. Neuro: Awake, alert and oriented 3. Moves all extremities well without hemiparesis or paralysis. No essential tremor is appreciated. Discharge Results Procedures and tests throughout hospitalization: Pending Orders 01/20/17 19:55 Blood Culture Stat 01/22/17 04:00 BMP w/ Mg [Basic Metabolic Panel w/Mg] IN AM CBC [Comp Blood Count Auto Diff] IN AM 01/23/17 04:00 BMP w/ Mg [Basic Metabolic Panel w/Mg] IN AM CBC [Comp Blood Count Auto Diff] IN AM Labs on day of discharge: Labs from last 24 hours 01/21/17 01/21/17 01/21/17 04:01 04:01 04:01 WBC RBC Hgb Hct MCV MCH MCHC RDW Plt Count MPV Neut % (Auto) Lymph % (Auto) [place] % (Auto) Eos % (Auto) Baso % (Auto) Neut # (Auto) Lymph # (Auto) [place] # (Auto) Eos # (Auto) Baso # (Auto) Immature Gran % Nucleated RBC % Immature Gran # Nucleated RBCs # Immature Plt Fraction Sodium 135 L Potassium 4.7 Chloride 100 Carbon Dioxide 31 Anion Gap 8.7 BUN 42 H Creatinine 1.90 H GFR Calculation 24 BUN/Creatinine Ratio 22.00 H Glucose 86 Calculated Osmolality 279.1 Calcium 9.0 Total Bilirubin 0.90 AST 18 ALT 16 Alkaline Phosphatase 59 Troponin I 0.577 H B-Natriuretic Peptide 1796 H Total Protein 6.6 Albumin 3.1 L Globulin 3.5 Albumin/Globulin Ratio 0.8 L Urine Color Urine Appearance Urine pH Ur Specific Onyx Urine Protein Urine Glucose (UA) Urine Ketones Urine Blood Urine Nitrate Urine Bilirubin Urine Urobilinogen Urine Leukocytes Urine RBC Urine WBC Ur Squamous Epith Cells Urine Mucus Ur Culture Indicated? 01/21/17 01/20/17 01/20/17 04:01 19:39 19:39 WBC 6.9 RBC 3.27 L Hgb 10.3 L Hct 29.4 L MCV 89.9 MCH 32 MCHC 35.0 RDW 13.7 Plt Count 192 MPV 10.1 Neut % (Auto) 49.1 Lymph % (Auto) 29.1 [place] % (Auto) 11.1 Eos % (Auto) 10.3 Baso % (Auto) 0.3 Neut # (Auto) 3.4 Lymph # (Auto) 2.0 [place] # (Auto) 0.8 Eos # (Auto) 0.7 Baso # (Auto) 0.0 Immature Gran % 0.1 Nucleated RBC % 0.0 Immature Gran # 0.01 Nucleated RBCs # 0.00 Immature Plt Fraction 0.0 Sodium Potassium Chloride Carbon Dioxide Anion Gap BUN Creatinine GFR Calculation BUN/Creatinine Ratio Glucose Calculated Osmolality Calcium Total Bilirubin AST ALT Alkaline Phosphatase Troponin I B-Natriuretic Peptide 1394 H Total Protein Albumin Globulin Albumin/Globulin Ratio Urine Color Yellow Urine Appearance Clear Urine pH 8.0 Ur Specific Onyx 1.006 Urine Protein Negative Urine Glucose (UA) Negative Urine Ketones Negative Urine Blood Negative Urine Nitrate Negative Urine Bilirubin Negative Urine Urobilinogen < 2.0 H Urine Leukocytes Negative Urine RBC 1 Urine WBC 2 Ur Squamous Epith Cells Occasional Urine Mucus Occasional Ur Culture Indicated? Not indicated 01/20/17 01/20/17 19:39 19:39 WBC 7.6 RBC 3.59 L Hgb 11.3 L Hct 32.2 L MCV 89.7 MCH 32 MCHC 35.1 RDW 13.7 Plt Count 220 MPV 9.8 Neut % (Auto) 62.8 Lymph % (Auto) 19.8 L [place] % (Auto) 9.2 Eos % (Auto) 7.4 Baso % (Auto) 0.4 Neut # (Auto) 4.8 Lymph # (Auto) 1.5 [place] # (Auto) 0.7 Eos # (Auto) 0.6 Baso # (Auto) 0.0 Immature Gran % 0.4 Nucleated RBC % 0.0 Immature Gran # 0.03 Nucleated RBCs # 0.00 Immature Plt Fraction 0.0 Sodium 132 L Potassium 4.9 Chloride 96 L Carbon Dioxide 30 Anion Gap 10.9 BUN 44 H Creatinine 1.90 H GFR Calculation 24 BUN/Creatinine Ratio 23.00 H Glucose 122 H Calculated Osmolality 275.5 Calcium 9.1 Total Bilirubin < 0.39 AST 20 ALT 20 Alkaline Phosphatase 76 Troponin I 0.624 H B-Natriuretic Peptide Total Protein 7.1 Albumin 3.7 Globulin 3.4 Albumin/Globulin Ratio 1.0 L Urine Color Urine Appearance Urine pH Ur Specific Onyx Urine Protein Urine Glucose (UA) Urine Ketones Urine Blood Urine Nitrate Urine Bilirubin Urine Urobilinogen Urine Leukocytes Urine RBC Urine WBC Ur Squamous Epith Cells Urine Mucus Ur Culture Indicated? - Imaging and Cardiology Procedure: Chest x-ray: report reviewed by me DS: Provider Date of admission: 01/20/17 21:10 Primary care physician: Ottoniel Dyer DO Attending physician on admission: Isidro Lombardo MD Consults: 01/21/17 08:51 Consult to Physician [CONS] Routine Comment: COPD with bronchitis Consulting Provider: Oscar Thomas Consulting Provider Notified: No When should Consulting Provider be notified: Now Person Notified: christina Date Notified: 01/21/17 Time Notified: 10:30 Discharging clinician: Mar Ramon NP Expected date of discharge: 01/21/17
[2017-01-21] MEDS ORDERED: ASPIRIN EC 81 MG TABLET PO SCH (19:00)
[2017-01-21] MEDS ORDERED: TEMAZEPAM 7.5 MG CAPSULE PO SCH (21:00)
[2017-01-21] MEDS ORDERED: MONTELUKAST 10 MG TABLET PO SCH (21:00)
[2017-01-21] MEDS ORDERED: SIMVASTATIN 20 MG TABLET PO SCH (21:00)
== END 2017-01-21 18:07 | disposition home or self-care (01) ==
LOC: N.ED 19:00 → N.EDINP 19:00 → N.TELES 21:35
PROVIDERS: ADMIT Internal Medicine Cardiovascular Disease; ATTEND Internal Medicine Cardiovascular Disease

== ENCOUNTER 2018-03-19 08:49 | Inpatient (IN) ==
[2018-03-19] MEDS ORDERED: ONDANSETRON 4 MG/2 ML VIAL ONE (09:11)
[2018-03-19] MEDS ORDERED: FUROSEMIDE 20 MG/2 ML VIAL ONE (09:12)
[2018-03-19] MEDS ORDERED: MORPHINE 4 MG/1 ML VIAL ONE (09:12)
[2018-03-19] MEDS ORDERED: FUROSEMIDE 100 MG/10 ML VIAL IV STA (09:36)
[2018-03-19] MEDS ORDERED: MORPHINE 4 MG/1 ML VIAL IV STA (09:36)
[2018-03-19] MEDS ORDERED: NITROGLYCERIN 2% OINT 1 INCH/GM PACK TOP STA (09:36)
[2018-03-19] MEDS ORDERED: ONDANSETRON 4 MG/2 ML VIAL IV STA (09:36)
[2018-03-19] MEDS ORDERED: FUROSEMIDE 40 MG/4 ML VIAL ONE (09:44)
[2018-03-19 09:49] LABS: Basophils # 0.1 10*3/uL (0.0-0.2); Basophils % 0.5 % (0.0-0.8); Eosinophils # 0.6 10*3/uL (0.0-0.87); Eosinophils % 5.8 % (0.00-10.9); Hematocrit 38.2 VOL% (35.7-47.0); Hemoglobin 12.2 GM/DL (12.0-16.0); Immature Granulocytes % 0.6 %; Immature Granulocytes Absolute 0.06 #; Lymphocytes # 4.1 10*3/uL (1.4-4.0); Lymphocytes % 41.6 % (21.3-54.2); Mean Corpuscular HGB Conc 31.9 GM/DL (32-36); Mean Corpuscular Hemoglobin 30 PG (27-34); Mean Corpuscular Volume 93.6 FL (87-102); Mean Platelet Volume 10.8 FL (9.6-12.0); Monocytes # 0.4 10*3/uL (0.11-0.8); Monocytes % 4.2 % (1.7-12.7); Neutrophils # 4.7 10*3/uL (1.4-7.4); Neutrophils % 47.3 % (38.7-73.9); Platelet Count 214 T/CUMM (130-400); Red Blood Count 4.08 MC/CUMM (3.8-5.5); Red Cell Distribution Width 13.7 % (9.3-17.3); White Blood Count 9.9 T/CUMM (4-12)
[2018-03-19] MEDS ORDERED: FUROSEMIDE 40 MG/4 ML VIAL IV STA (09:50)
[2018-03-19 09:53] LABS: PT Patient Result 10.6 SECS
[2018-03-19] MEDS ORDERED: ALBUTEROL 2.5 MG/3 ML NEB RESP TX SCH (10:00)
[2018-03-19 10:03] LABS: Alanine Aminotransferase 61 U/L (13-56); Albumin 3.3 G/DL (3.4-5.0); Alkaline Phosphatase 118 U/L (45-117); Apearance,Urine CLEAR (Clear); Aspartate Amino Transferase 81 U/L (0-37); Bilirubin,Urine Negative (Negative); Blood Urea Nitrogen 25 MG/DL (7-18); Blood, Urine Negative (Negative); Calcium 8.4 MG/DL (8.5-10.1); Glucose 307 MG/DL (74-106); Glucose,Urine (UA) Negative (Negative); Ketones,Urine Negative (Negative); Nitrite,Urine Negative (Negative); Protein,Urine 30 MG/DL; RBC,Urine 1 /HPF (0-4); Sodium 136 MMOL/L (136-145); Total Protein 7.1 G/DL (6.4-8.3); Urine Color Yellow (Yellow); Urine Specific Gravity 1.009 (1.001-1.035); Urine Urobilinogen < 2.0 EU/DL (0.2-1.0); WBC,Urine <1 /HPF (0-6)
[2018-03-19] MEDS ORDERED: MORPHINE 4 MG/1 ML VIAL IV PRN (12:47)
[2018-03-19] MEDS ORDERED: ACETAMINOPHEN 325 MG TABLET PO PRN (12:47)
[2018-03-19] MEDS ORDERED: ONDANSETRON 4 MG/2 ML VIAL IV PRN (12:47)
[2018-03-19] MEDS ORDERED: ALBUTEROL/IPRATROPIUM 3 ML NEB RESP TX PRN (12:47)
[2018-03-19] MEDS: MEROPENEM 1,000 MG in SODIUM CHLORIDE 0.9% 100 ML IV SCH (13:30)
[2018-03-19] MEDS: DIGOXIN 0.125 MG TABLET PO SCH (13:30)
[2018-03-19] MEDS: PANTOPRAZOLE 40 MG TABLET PO SCH (13:31)
[2018-03-19] MEDS: ALBUTEROL/IPRATROPIUM 3 ML NEB RESP TX SCH ×2 (14:45→19:16)
[2018-03-19] MEDS ORDERED: FUROSEMIDE 40 MG/4 ML VIAL IV SCH (16:00)
[2018-03-19] MEDS: FUROSEMIDE 40 MG/4 ML VIAL IV SCH (16:53)
[2018-03-19] MEDS: CARVEDILOL 6.25 MG TABLET PO SCH (16:53)
[2018-03-19] MEDS: TEMAZEPAM 7.5 MG CAPSULE PO SCH (20:22)
[2018-03-19] MEDS: MONTELUKAST 10 MG TABLET PO SCH (20:22)
[2018-03-19] MEDS: SACUBITRIL/VALSARTAN 49-51 MG TABLET PO SCH (20:23)
[2018-03-19] MEDS: ASPIRIN EC 81 MG TABLET PO SCH (20:23)
[2018-03-19] MEDS: diphenhydrAMINE CAP 25 MG CAPSULE PO SCH (20:23)
[2018-03-19] MEDS: SIMVASTATIN 20 MG TABLET PO SCH (20:23)
[2018-03-19] MEDS: ENOXAPARIN 30 MG/0.3 ML SYRINGE SUBCUT SCH (20:23)
[2018-03-20] MEDS: ALBUTEROL/IPRATROPIUM 3 ML NEB RESP TX SCH ×4 (00:30→19:16)
[2018-03-20] MEDS: MEROPENEM 1,000 MG in SODIUM CHLORIDE 0.9% 100 ML IV SCH ×2 (02:06→13:22)
[2018-03-20 03:13] LABS: ABG Base Excess 6.8 MMOL/L (-2.5-2.5); ABG HCO3 31.6 MMOL/L (20-26); ABG Oxygen Saturation 96.4 % (95-100); ABG PCO2 46.5 MM HG (35-48); ABG PO2 86.9 MM HG (80-95); Allen Test Positive; Pt O2 Delivery Device Other
[2018-03-20 06:53] LABS: Basophils % 0.5 % (0.0-0.8); Eosinophils # 0.4 10*3/uL (0.0-0.87); Eosinophils % 6.9 % (0.00-10.9); Immature Granulocytes % 0.5 %; Immature Granulocytes Absolute 0.03 #; Lymphocytes # 1.2 10*3/uL (1.4-4.0); Lymphocytes % 19.7 % (21.3-54.2); Mean Corpuscular HGB Conc 32.3 GM/DL (32-36); Mean Corpuscular Hemoglobin 30 PG (27-34); Mean Corpuscular Volume 92.3 FL (87-102); Mean Platelet Volume 10.8 FL (9.6-12.0); Monocytes # 0.6 10*3/uL (0.11-0.8); Monocytes % 9.8 % (1.7-12.7); Neutrophils # 3.9 10*3/uL (1.4-7.4); Neutrophils % 62.6 % (38.7-73.9); Platelet Count 139 T/CUMM (130-400); Red Blood Count 3.36 MC/CUMM (3.8-5.5); Red Cell Distribution Width 13.7 % (9.3-17.3); White Blood Count 6.2 T/CUMM (4-12)
[2018-03-20 07:26] LABS: Calcium 7.9 MG/DL (8.5-10.1); Osmolality,Calculated 284.4 MOS/KG (273-304); Potassium 3.8 MMOL/L (3.5-5.1)
[2018-03-20 07:29] LABS: Troponin I 1.54 NG/ML (0.00-0.045)
[2018-03-20] MEDS: CARVEDILOL 6.25 MG TABLET PO SCH ×2 (08:37→16:46)
[2018-03-20] MEDS: ISOSORBIDE MONONITRATE 30 MG TABLET PO SCH (08:37)
[2018-03-20] MEDS: PANTOPRAZOLE 40 MG TABLET PO SCH (08:37)
[2018-03-20] MEDS: FUROSEMIDE 40 MG/4 ML VIAL IV SCH ×2 (08:37→17:01)
[2018-03-20] MEDS: SACUBITRIL/VALSARTAN 49-51 MG TABLET PO SCH ×2 (08:37→21:06)
[2018-03-20] MEDS: CLOPIDOGREL 75 MG TABLET PO SCH (08:37)
[2018-03-20] MEDS: SPIRONOLACTONE 25 MG TABLET PO SCH (10:04)
[2018-03-20] MEDS: DIGOXIN 0.125 MG TABLET PO SCH (13:22)
[2018-03-20] MEDS: MONTELUKAST 10 MG TABLET PO SCH (21:06)
[2018-03-20] MEDS: diphenhydrAMINE CAP 25 MG CAPSULE PO SCH (21:06)
[2018-03-20] MEDS: ENOXAPARIN 30 MG/0.3 ML SYRINGE SUBCUT SCH (21:06)
[2018-03-20] MEDS: SIMVASTATIN 20 MG TABLET PO SCH (21:06)
[2018-03-20] MEDS: TEMAZEPAM 7.5 MG CAPSULE PO SCH (21:06)
[2018-03-20] MEDS: ASPIRIN EC 81 MG TABLET PO SCH (21:06)
[2018-03-21] MEDS: ALBUTEROL/IPRATROPIUM 3 ML NEB RESP TX SCH ×3 (00:31→12:00)
[2018-03-21] MEDS: MEROPENEM 1,000 MG in SODIUM CHLORIDE 0.9% 100 ML IV SCH (00:35)
[2018-03-21 04:45] LABS: Basophils % 0.6 % (0.0-0.8); Eosinophils # 0.6 10*3/uL (0.0-0.87); Eosinophils % 12.2 % (0.00-10.9); Hematocrit 29.2 VOL% (35.7-47.0); Hemoglobin 9.4 GM/DL (12.0-16.0); Immature Granulocytes % 0.2 %; Immature Granulocytes Absolute 0.01 #; Lymphocytes # 0.8 10*3/uL (1.4-4.0); Lymphocytes % 16.3 % (21.3-54.2); Mean Corpuscular HGB Conc 32.2 GM/DL (32-36); Mean Corpuscular Hemoglobin 29 PG (27-34); Mean Corpuscular Volume 90.7 FL (87-102); Mean Platelet Volume 10.7 FL (9.6-12.0); Monocytes # 0.4 10*3/uL (0.11-0.8); Monocytes % 7.3 % (1.7-12.7); Neutrophils # 3.1 10*3/uL (1.4-7.4); Neutrophils % 63.4 % (38.7-73.9); Platelet Count 141 T/CUMM (130-400); Red Blood Count 3.22 MC/CUMM (3.8-5.5); Red Cell Distribution Width 13.9 % (9.3-17.3); White Blood Count 4.9 T/CUMM (4-12)
[2018-03-21 04:49] LABS: Calcium 7.6 MG/DL (8.5-10.1); Osmolality,Calculated 290.1 MOS/KG (273-304); Potassium 3.3 MMOL/L (3.5-5.1)
[2018-03-21 06:55] LABS: Acanthocytes 1+; Band Neutrophils 3 % (0-10); Eosinophils 15 % (0-10); Lymphocytes 17 % (20-55); Platelet Estimate Decreased; Segmented Neutrophils 59 % (50-85); Total Cells Counted 100
[2018-03-21] MEDS ORDERED: POTASSIUM CHLORIDE 20 MEQ TABLET PO PRN (07:37)
[2018-03-21] MEDS: ISOSORBIDE MONONITRATE 30 MG TABLET PO SCH (09:13)
[2018-03-21] MEDS: CARVEDILOL 6.25 MG TABLET PO SCH (09:13)
[2018-03-21] MEDS: SPIRONOLACTONE 25 MG TABLET PO SCH (09:13)
[2018-03-21] MEDS: CLOPIDOGREL 75 MG TABLET PO SCH (09:13)
[2018-03-21] MEDS: PANTOPRAZOLE 40 MG TABLET PO SCH (09:14)
[2018-03-21] MEDS: FUROSEMIDE 40 MG/4 ML VIAL IV SCH (09:15)
[2018-03-21] MEDS: SACUBITRIL/VALSARTAN 49-51 MG TABLET PO SCH (09:27)
[2018-03-21] MEDS ORDERED: POTASSIUM CHLORIDE 20 MEQ TABLET PO ONE (11:35)
[2018-03-21 12:18] VITALS: BP 110/66
[2018-03-21] MEDS: DIGOXIN 0.125 MG TABLET PO SCH (12:26)
== END 2018-03-21 16:07 | disposition home or self-care (01) | DRG 291 ==
LOC: N.ED 08:49 → SUATTDRO 11:16 → N.EDINP 11:16 → N.CC 11:43 → N.TELES 03-20 12:02
PROVIDERS: ADMIT Internal Medicine; ATTEND Internal Medicine

== ENCOUNTER 2019-09-02 11:52 | Inpatient (IN) ==
[2019-09-02] MEDS ORDERED: SODIUM CHLORIDE 0.9% 500 ML IV STA (12:25)
[2019-09-02 13:05] LABS: Basophils % 0.1 % (0.0-0.8); Eosinophils % 0.3 % (0.00-10.9); Hematocrit 29.4 VOL% (35.7-47.0); Hemoglobin 9.7 GM/DL (12.0-16.0); Immature Granulocytes % 1.3 %; Immature Granulocytes Absolute 0.11 #; Lymphocytes # 0.8 10*3/uL (1.4-4.0); Lymphocytes % 9.6 % (21.3-54.2); Mean Corpuscular Volume 93.6 FL (87-102); Mean Platelet Volume 10.5 FL (9.6-12.0); Monocytes % 7.7 % (1.7-12.7); Platelet Count 146 T/CUMM (130-400); Red Blood Count 3.14 MC/CUMM (3.8-5.5); Red Cell Distribution Width 13.8 % (9.3-17.3); White Blood Count 8.7 T/CUMM (4-12)
[2019-09-02 13:19] LABS: INR 0.9; PT Patient Result 10.1 SECS (9.8-11.9)
[2019-09-02 13:27] LABS: Albumin 2.6 G/DL (3.4-5.0); Bilirubin,Total 0.6 MG/DL (0.2-1.0); Calcium 7.6 MG/DL (8.5-10.1); Osmolality,Calculated 290.4 MOS/KG (273-304)
[2019-09-02] MEDS ORDERED: MAGNESIUM SULF RIDER 4 GM in PREMIX 1 EACH IV PRN (15:39)
[2019-09-02] MEDS ORDERED: DEXTROSE 10% 250 ML BAG IV PRN (15:39)
[2019-09-02] MEDS ORDERED: GLUCAGON 1 MG VIAL IM PRN (15:39)
[2019-09-02] MEDS ORDERED: MAGNESIUM SULF RIDER 2 GM in PREMIX 1 EACH IV PRN (15:39)
[2019-09-02] MEDS ORDERED: ONDANSETRON 4 MG/2 ML VIAL IV PRN (15:39)
[2019-09-02] MEDS ORDERED: PANTOPRAZOLE 40 MG TABLET PO SCH (16:00)
[2019-09-02] MEDS ORDERED: DIGOXIN IMMUNE FAB IV STA (16:00)
[2019-09-02] MEDS ORDERED: SODIUM CHLORIDE 0.9% IV STA (16:00)
[2019-09-02 16:35] LABS: ABG Base Excess -6.4 MMOL/L (-2.5-2.5); ABG HCO3 19.1 MMOL/L (20-26); ABG Oxygen Saturation 94.4 % (95-100); ABG PCO2 35.4 MM HG (35-48); ABG PH 7.333 (7.35-7.45); ABG TCO2 17.4 MMOL/L (23-27)
[2019-09-02 16:40] LABS: Apearance,Urine CLEAR (Clear); Bacteria,Urine Occasional /HPF (Few); Bilirubin,Urine Negative (Negative); Blood, Urine Negative (Negative); Glucose,Urine (UA) Negative (Negative); Ketones,Urine Negative (Negative); Mucus,Urine Occasional /LPF (Occasional); Nitrite,Urine Negative (Negative); Protein,Urine Negative; RBC,Urine 3 /HPF (0-4); Squamous Epithelial Cell,Urine Occasional /HPF (0-10); Urine Color Yellow (Yellow); Urine Urobilinogen < 2.0 EU/DL (0.2-1.0); WBC,Urine 4 /HPF (0-6)
[2019-09-02 17:03] LABS: % Iron Saturation 12.9 % (18-50)
[2019-09-02] MEDS: SODIUM CHLORIDE 0.9% 1,000 ML IV SCH (18:00)
[2019-09-02] MEDS: ASPIRIN EC 81 MG TABLET PO SCH (20:00)
[2019-09-02] MEDS: SIMVASTATIN 20 MG TABLET PO SCH (20:00)
[2019-09-02] MEDS: MONTELUKAST 10 MG TABLET PO SCH (20:00)
[2019-09-03] MEDS: SODIUM CHLORIDE 0.9% 1,000 ML IV SCH ×4 (02:00→22:00)
[2019-09-03 04:47] LABS: Eosinophils % 0.7 % (0.00-10.9); Hematocrit 26.5 VOL% (35.7-47.0); Hemoglobin 8.9 GM/DL (12.0-16.0); Immature Granulocytes % 1.6 %; Lymphocytes # 0.7 10*3/uL (1.4-4.0); Lymphocytes % 11.2 % (21.3-54.2); Mean Corpuscular HGB Conc 33.6 GM/DL (32-36); Mean Corpuscular Volume 91.1 FL (87-102); Mean Platelet Volume 10.2 FL (9.6-12.0); Monocytes % 9.3 % (1.7-12.7); Neutrophils % 77.2 % (38.7-73.9); Platelet Count 141 T/CUMM (130-400); Red Blood Count 2.91 MC/CUMM (3.8-5.5); Red Cell Distribution Width 13.6 % (9.3-17.3); White Blood Count 6.2 T/CUMM (4-12)
[2019-09-03 05:02] LABS: Calcium 7.3 MG/DL (8.5-10.1); Osmolality,Calculated 298.2 MOS/KG (273-304)
[2019-09-03] MEDS: PANTOPRAZOLE 40 MG TABLET PO SCH (08:50)
[2019-09-03] MEDS: CLOPIDOGREL 75 MG TABLET PO SCH (08:50)
[2019-09-03] MEDS: ACETAMINOPHEN 325 MG TABLET PO PRN (09:00)
[2019-09-03] MEDS ORDERED: DIGOXIN IMMUNE FAB IV ONE (09:30)
[2019-09-03] MEDS ORDERED: SODIUM CHLORIDE 0.9% IV ONE (09:30)
[2019-09-03] MEDS: ASPIRIN EC 81 MG TABLET PO SCH (20:15)
[2019-09-03] MEDS: MONTELUKAST 10 MG TABLET PO SCH (20:15)
[2019-09-03] MEDS: ZALEPLON 5 MG CAPSULE PO PRN (20:15)
[2019-09-03] MEDS: SIMVASTATIN 20 MG TABLET PO SCH (20:15)
[2019-09-04] MEDS: ACETAMINOPHEN 325 MG TABLET PO PRN (02:05)
[2019-09-04] MEDS: SODIUM CHLORIDE 0.9% 1,000 ML IV SCH ×2 (02:17→16:17)
[2019-09-04 03:36] LABS: Calcium 7.7 MG/DL (8.5-10.1); Osmolality,Calculated 300.5 MOS/KG (273-304)
[2019-09-04 03:42] LABS: Basophils % 0.2 % (0.0-0.8); Eosinophils # 0.1 10*3/uL (0.0-0.87); Eosinophils % 0.8 % (0.00-10.9); Hematocrit 26.3 VOL% (35.7-47.0); Hemoglobin 8.7 GM/DL (12.0-16.0); Immature Granulocytes % 2.6 %; Immature Granulocytes Absolute 0.16 #; Lymphocytes # 0.6 10*3/uL (1.4-4.0); Lymphocytes % 9.9 % (21.3-54.2); Mean Corpuscular HGB Conc 33.1 GM/DL (32-36); Mean Corpuscular Volume 91.3 FL (87-102); Monocytes % 7.6 % (1.7-12.7); Neutrophils % 78.9 % (38.7-73.9); Platelet Count 158 T/CUMM (130-400); Red Blood Count 2.88 MC/CUMM (3.8-5.5); Red Cell Distribution Width 13.7 % (9.3-17.3); White Blood Count 6.2 T/CUMM (4-12)
[2019-09-04 05:28] LABS: Band Neutrophils 1 % (0-10); Eosinophils 2 % (0-10); Lymphocytes 12 % (20-55); Promyelocytes 1 %; Segmented Neutrophils 74 % (50-85); Total Cells Counted 100
[2019-09-04 05:29] LABS: Atypical Lymphocytes Few; Microcytosis Slight
[2019-09-04 05:30] LABS: Ovalocytes Slight; Platelet Estimate Adequate
[2019-09-04] MEDS: PANTOPRAZOLE 40 MG TABLET PO SCH (08:07)
[2019-09-04] MEDS: CLOPIDOGREL 75 MG TABLET PO SCH (08:07)
[2019-09-04] MEDS ORDERED: carvediloL 3.125 MG TABLET PO SCH (10:00)
[2019-09-04] MEDS ORDERED: FUROSEMIDE 20 MG/2 ML VIAL IV ONE (10:00)
[2019-09-04] MEDS: SACUBITRIL/VALSARTAN 49-51 MG TABLET PO SCH ×2 (10:33→20:44)
[2019-09-04] MEDS: ASPIRIN EC 81 MG TABLET PO SCH (18:29)
[2019-09-04] MEDS: MONTELUKAST 10 MG TABLET PO SCH (18:29)
[2019-09-04] MEDS: carvediloL 3.125 MG TABLET PO SCH (20:44)
[2019-09-04] MEDS: ZALEPLON 5 MG CAPSULE PO PRN (20:45)
[2019-09-05 06:41] LABS: Basophils % 0.1 % (0.0-0.8); Eosinophils % 0.1 % (0.00-10.9); Hemoglobin 9.2 GM/DL (12.0-16.0); Immature Granulocytes % 5.2 %; Immature Granulocytes Absolute 0.39 #; Lymphocytes # 0.7 10*3/uL (1.4-4.0); Lymphocytes % 9.5 % (21.3-54.2); Mean Corpuscular HGB Conc 31.7 GM/DL (32-36); Mean Corpuscular Volume 95.4 FL (87-102); Monocytes % 4.8 % (1.7-12.7); Neutrophils % 80.3 % (38.7-73.9); Platelet Count 198 T/CUMM (130-400); Red Blood Count 3.04 MC/CUMM (3.8-5.5); White Blood Count 7.5 T/CUMM (4-12)
[2019-09-05 06:53] LABS: Calcium 7.7 MG/DL (8.5-10.1); Osmolality,Calculated 300.3 MOS/KG (273-304)
[2019-09-05 07:53] LABS: Anisocytosis 1+; Band Neutrophils 12 % (0-10); Burr Cells 1+; Lymphocytes 7 % (20-55); Macrocytosis Slight; Platelet Estimate Normal; Poikilocytosis 1+; Segmented Neutrophils 77 % (50-85); Smudge Cells Few; Total Cells Counted 100
[2019-09-05] MEDS: CLOPIDOGREL 75 MG TABLET PO SCH (09:02)
[2019-09-05] MEDS: carvediloL 3.125 MG TABLET PO SCH (09:02)
[2019-09-05] MEDS: PANTOPRAZOLE 40 MG TABLET PO SCH (09:02)
[2019-09-05] MEDS: SACUBITRIL/VALSARTAN 49-51 MG TABLET PO SCH ×2 (09:02→22:10)
[2019-09-05] MEDS ORDERED: carvediloL 6.25 MG TABLET PO SCH (10:42)
[2019-09-05] MEDS: ASPIRIN EC 81 MG TABLET PO SCH (18:08)
[2019-09-05] MEDS: carvediloL 6.25 MG TABLET PO SCH (18:08)
[2019-09-05] MEDS: MONTELUKAST 10 MG TABLET PO SCH (18:08)
[2019-09-05] MEDS: CIPROFLOXACIN 250 MG TABLET PO SCH (22:10)
[2019-09-06 05:53] LABS: Basophils % 0.2 % (0.0-0.8); Hematocrit 31.7 VOL% (35.7-47.0); Hemoglobin 10.1 GM/DL (12.0-16.0); Immature Granulocytes % 6.4 %; Immature Granulocytes Absolute 0.99 #; Lymphocytes # 0.8 10*3/uL (1.4-4.0); Lymphocytes % 5.1 % (21.3-54.2); Mean Corpuscular HGB Conc 31.9 GM/DL (32-36); Mean Corpuscular Volume 95.2 FL (87-102); Mean Platelet Volume 9.8 FL (9.6-12.0); Monocytes % 1.9 % (1.7-12.7); Neutrophils % 86.4 % (38.7-73.9); Platelet Count 279 T/CUMM (130-400); Red Blood Count 3.33 MC/CUMM (3.8-5.5); Red Cell Distribution Width 14.3 % (9.3-17.3); White Blood Count 15.5 T/CUMM (4-12)
[2019-09-06 06:09] LABS: Osmolality,Calculated 304.5 MOS/KG (273-304)
[2019-09-06 06:43] LABS: Anisocytosis 1+; Band Neutrophils 17 % (0-10); Lymphocytes 5 % (20-55); Metamyelocytes 4 %; Myelocytes 2 %; Platelet Estimate Normal; Segmented Neutrophils 69 % (50-85); Total Cells Counted 100
[2019-09-06 06:44] LABS: Poikilocytosis Slight
[2019-09-06] MEDS ORDERED: AMIODARONE INJ 150 MG in DEXTROSE 5% 100 ML IV ONE (08:05)
[2019-09-06] MEDS: SACUBITRIL/VALSARTAN 49-51 MG TABLET PO SCH (08:24)
[2019-09-06] MEDS ORDERED: AMIODARONE INJ 450 MG in DEXTROSE 5% 241 ML IV SCH ×2 (08:30→14:30)
[2019-09-06] MEDS: CLOPIDOGREL 75 MG TABLET PO SCH (08:58)
[2019-09-06] MEDS: carvediloL 6.25 MG TABLET PO SCH ×2 (08:58→17:15)
[2019-09-06] MEDS: PANTOPRAZOLE 40 MG TABLET PO SCH (08:58)
[2019-09-06] MEDS: CIPROFLOXACIN 250 MG TABLET PO SCH (10:57)
[2019-09-06] MEDS: cefTRIAXone 1,000 MG in SYRINGE 1 EACH IV SCH (11:45)
[2019-09-06] MEDS: DOXYCYCLINE HYCLATE INJ 100 MG in SODIUM CHLORIDE 0.9% 100 ML IV SCH (14:00)
[2019-09-06] MEDS: MONTELUKAST 10 MG TABLET PO SCH (21:23)
[2019-09-06] MEDS: ASPIRIN EC 81 MG TABLET PO SCH (21:24)
[2019-09-07] MEDS: DOXYCYCLINE HYCLATE INJ 100 MG in SODIUM CHLORIDE 0.9% 100 ML IV SCH ×2 (02:17→11:57)
[2019-09-07 06:00] LABS: Basophils # 0.1 10*3/uL (0.0-0.2); Basophils % 0.3 % (0.0-0.8); Hematocrit 34.1 VOL% (35.7-47.0); Hemoglobin 10.3 GM/DL (12.0-16.0); Immature Granulocytes % 6.5 %; Immature Granulocytes Absolute 1.63 #; Lymphocytes # 0.7 10*3/uL (1.4-4.0); Lymphocytes % 2.8 % (21.3-54.2); Mean Corpuscular HGB Conc 30.2 GM/DL (32-36); Mean Corpuscular Volume 99.4 FL (87-102); Mean Platelet Volume 9.8 FL (9.6-12.0); Monocytes % 1.4 % (1.7-12.7); Platelet Count 331 T/CUMM (130-400); Red Blood Count 3.43 MC/CUMM (3.8-5.5); Red Cell Distribution Width 14.7 % (9.3-17.3); White Blood Count 25.1 T/CUMM (4-12)
[2019-09-07 06:01] LABS: Albumin 1.9 G/DL (3.4-5.0); Bilirubin,Total 0.4 MG/DL (0.2-1.0); Calcium 8.3 MG/DL (8.5-10.1); Ferritin 1327.5 ng/ml (8-252); Osmolality,Calculated 310.4 MOS/KG (273-304); Total Protein 6.7 G/DL (6.4-8.3)
[2019-09-07 06:27] LABS: Anisocytosis 1+; Band Neutrophils 25 % (0-10); Burr Cells 1+; Lymphocytes 4 % (20-55); Metamyelocytes 2 %; Myelocytes 1 %; Platelet Estimate Normal; Segmented Neutrophils 65 % (50-85); Total Cells Counted 100
[2019-09-07 06:28] LABS: Poikilocytosis Slight; Smudge Cells Few
[2019-09-07 06:29] LABS: Polychromasia Slight
[2019-09-07] MEDS: PANTOPRAZOLE 40 MG TABLET PO SCH ×2 (08:52→12:34)
[2019-09-07] MEDS: carvediloL 6.25 MG TABLET PO SCH ×3 (08:52→16:00)
[2019-09-07] MEDS: CLOPIDOGREL 75 MG TABLET PO SCH ×2 (08:52→12:33)
[2019-09-07 10:43] LABS: ABG Base Excess -13.7 MMOL/L (-2.5-2.5); ABG HCO3 13.8 MMOL/L (20-26); ABG Oxygen Saturation 94.2 % (95-100); ABG PCO2 54.1 MM HG (35-48); ABG PO2 74.4 MM HG (80-95); ABG TCO2 15.7 MMOL/L (23-27); Pt O2 Delivery Device Other
[2019-09-07 10:50] LABS: ABG PH 7.087 (7.35-7.45)
[2019-09-07] MEDS ORDERED: SUCCINYLCHOLINE 200 MG/10 ML VIAL ONE (11:11)
[2019-09-07] MEDS ORDERED: SODIUM CHLORIDE 0.9% 1,000 ML IV ONE (11:40)
[2019-09-07] MEDS: cefTRIAXone 1,000 MG in SYRINGE 1 EACH IV SCH (11:56)
[2019-09-07] MEDS ORDERED: SUCCINYLCHOLINE 200 MG/10 ML VIAL IV ONE ×2 (12:10→15:46)
[2019-09-07] MEDS ORDERED: propofoL 200 MG/20 ML VIAL IV ONE (12:11)
[2019-09-07 12:53] LABS: ABG Base Excess -14.4 MMOL/L (-2.5-2.5); ABG HCO3 13.3 MMOL/L (20-26); ABG Oxygen Saturation 99.7 % (95-100); ABG PCO2 40.9 MM HG (35-48); ABG TCO2 13.4 MMOL/L (23-27); Pt O2 Delivery Device Ventilator
[2019-09-07 12:55] LABS: ABG PH 7.141 (7.35-7.45)
[2019-09-07] MEDS ORDERED: SODIUM CHLORIDE 0.9% 250 ML IV ONE (13:29)
[2019-09-07] MEDS: SODIUM BICARB INJ 50 MEQ in SODIUM CHLORIDE 0.45% 1,000 ML IV SCH (13:50)
[2019-09-07] MEDS ORDERED: NOREPINEPHRINE 4 MG/4 ML VIAL IV ONE ×2 (15:32→15:37)
[2019-09-07] MEDS: NOREPINEPHRINE 8 MG in SODIUM CHLORIDE 0.9% 242 ML IV PRN (15:39)
[2019-09-07] MEDS: DEXTROSE 10% 250 ML BAG IV PRN ×2 (17:42→18:17)
[2019-09-07] MEDS: ASPIRIN EC 81 MG TABLET PO SCH (21:36)
[2019-09-07] MEDS: HYDROXYCHLOROQUINE 200 MG TABLET PO SCH (21:36)
[2019-09-07] MEDS: MONTELUKAST 10 MG TABLET PO SCH (21:36)
[2019-09-08] MEDS: DOXYCYCLINE HYCLATE INJ 100 MG in SODIUM CHLORIDE 0.9% 100 ML IV SCH ×2 (02:57→15:01)
[2019-09-08 04:19] LABS: ABG Base Excess -11.3 MMOL/L (-2.5-2.5); ABG HCO3 15.5 MMOL/L (20-26); ABG Oxygen Saturation 99.6 % (95-100); ABG PCO2 38.1 MM HG (35-48); ABG PH 7.223 (7.35-7.45); ABG TCO2 14.8 MMOL/L (23-27); Allen Test Positive; Pt O2 Delivery Device Ventilator
[2019-09-08] MEDS ORDERED: NOREPINEPHRINE 4 MG/4 ML VIAL IV ONE ×4 (05:40→20:19)
[2019-09-08] MEDS: NOREPINEPHRINE 8 MG in SODIUM CHLORIDE 0.9% 242 ML IV PRN ×3 (06:20→14:18)
[2019-09-08 07:24] LABS: Basophils % 0.1 % (0.0-0.8); Hematocrit 28.8 VOL% (35.7-47.0); Immature Granulocytes % 4.3 %; Immature Granulocytes Absolute 0.98 #; Lymphocytes # 0.5 10*3/uL (1.4-4.0); Lymphocytes % 2.1 % (21.3-54.2); Mean Corpuscular HGB Conc 31.3 GM/DL (32-36); Mean Corpuscular Volume 96.3 FL (87-102); Mean Platelet Volume 9.5 FL (9.6-12.0); Monocytes % 1.3 % (1.7-12.7); NRBC # 0.02 10*3/uL; Neutrophils % 92.2 % (38.7-73.9); Platelet Count 311 T/CUMM (130-400); Red Blood Count 2.99 MC/CUMM (3.8-5.5); Red Cell Distribution Width 14.8 % (9.3-17.3); White Blood Count 22.9 T/CUMM (4-12)
[2019-09-08 07:43] LABS: Calcium 7.6 MG/DL (8.5-10.1); Osmolality,Calculated 315.4 MOS/KG (273-304)
[2019-09-08 07:47] LABS: Anisocytosis 1+; Band Neutrophils 15 % (0-10); Burr Cells 1+; Lymphocytes 1 % (20-55); Metamyelocytes 2 %; Myelocytes 1 %; Platelet Estimate Normal; Poikilocytosis Slight; Segmented Neutrophils 79 % (50-85); Total Cells Counted 100
[2019-09-08] MEDS: carvediloL 6.25 MG TABLET PO SCH ×2 (07:59→17:36)
[2019-09-08] MEDS ORDERED: AMIODARONE INJ 150 MG in DEXTROSE 5% 100 ML IV ONE (08:45)
[2019-09-08] MEDS: CLOPIDOGREL 75 MG TABLET PO SCH (08:49)
[2019-09-08] MEDS: PANTOPRAZOLE 40 MG VIAL IV SCH (08:49)
[2019-09-08] MEDS: HYDROXYCHLOROQUINE 200 MG TABLET PO SCH ×2 (08:49→22:46)
[2019-09-08] MEDS: AMIODARONE 200 MG TABLET PO SCH ×2 (09:08→22:46)
[2019-09-08] MEDS: fentaNYL INJ 1,250 MCG in SODIUM CHLORIDE 0.9% 225 ML IV PRN (09:49)
[2019-09-08] MEDS ORDERED: TOCILIZUMAB IV ONE (10:02)
[2019-09-08] MEDS ORDERED: SODIUM CHLORIDE 0.9% IV ONE (10:02)
[2019-09-08] MEDS: SODIUM BICARB INJ 50 MEQ in SODIUM CHLORIDE 0.45% 1,000 ML IV SCH (11:19)
[2019-09-08] MEDS: cefTRIAXone 1,000 MG in SYRINGE 1 EACH IV SCH (12:57)
[2019-09-08] MEDS: ENOXAPARIN 60 MG/0.6 ML SYRINGE SUBCUT SCH (12:57)
[2019-09-08] MEDS: ACETAMINOPHEN 325 MG TABLET PO PRN (15:48)
[2019-09-08] MEDS ORDERED: AMIODARONE INJ 450 MG in DEXTROSE 5% 241 ML IV SCH (22:30)
[2019-09-08] MEDS: ASPIRIN CHEW 81 MG TABLET PO SCH (22:45)
[2019-09-08] MEDS: MONTELUKAST 10 MG TABLET PO SCH (22:46)
[2019-09-08] MEDS: NOREPINEPHRINE 16 MG in SODIUM CHLORIDE 0.9% 234 ML IV PRN (22:46)
[2019-09-08] MEDS ORDERED: CALCIUM GLUCONATE 1,000 MG in SODIUM CHLORIDE 0.9% 100 ML IV ONE (23:30)
[2019-09-09] MEDS: DOXYCYCLINE HYCLATE INJ 100 MG in SODIUM CHLORIDE 0.9% 100 ML IV SCH ×3 (00:24→23:49)
[2019-09-09 04:16] LABS: ABG Base Excess -10.8 MMOL/L (-2.5-2.5); ABG HCO3 15.9 MMOL/L (20-26); ABG Oxygen Saturation 98.8 % (95-100); ABG PCO2 38.6 MM HG (35-48); ABG PH 7.233 (7.35-7.45); ABG PO2 164.5 MM HG (80-95); ABG TCO2 17.1 MMOL/L (23-27); Allen Test Positive; Pt O2 Delivery Device Ventilator
[2019-09-09] MEDS: SODIUM BICARB INJ 50 MEQ in SODIUM CHLORIDE 0.45% 1,000 ML IV SCH (06:23)
[2019-09-09 07:04] LABS: Basophils % 0.2 % (0.0-0.8); Hematocrit 27.4 VOL% (35.7-47.0); Hemoglobin 8.6 GM/DL (12.0-16.0); Immature Granulocytes % 3.6 %; Immature Granulocytes Absolute 0.82 #; Lymphocytes # 0.8 10*3/uL (1.4-4.0); Lymphocytes % 3.6 % (21.3-54.2); Mean Corpuscular HGB Conc 31.4 GM/DL (32-36); Mean Corpuscular Volume 94.2 FL (87-102); Mean Platelet Volume 9.8 FL (9.6-12.0); Neutrophils % 90.6 % (38.7-73.9); Platelet Count 232 T/CUMM (130-400); Red Blood Count 2.91 MC/CUMM (3.8-5.5); Red Cell Distribution Width 15.1 % (9.3-17.3); White Blood Count 22.6 T/CUMM (4-12)
[2019-09-09 07:25] LABS: Burr Cells Slight; Hypochromasia 1+; Lymphocytes 1 % (20-55); Nucleated Red Blood Cells 1 (0-5); Ovalocytes Slight; Platelet Estimate Adequate; Segmented Neutrophils 99 % (50-85); Total Cells Counted 100
[2019-09-09] MEDS: ASPIRIN CHEW 81 MG TABLET PO SCH (09:01)
[2019-09-09] MEDS: AMIODARONE 200 MG TABLET PO SCH ×2 (09:01→21:33)
[2019-09-09] MEDS: carvediloL 6.25 MG TABLET PO SCH ×2 (09:01→16:14)
[2019-09-09] MEDS: CLOPIDOGREL 75 MG TABLET PO SCH (09:01)
[2019-09-09] MEDS: HYDROXYCHLOROQUINE 200 MG TABLET PO SCH ×2 (09:01→21:34)
[2019-09-09] MEDS: PANTOPRAZOLE 40 MG VIAL IV SCH (09:02)
[2019-09-09] MEDS: ZINC SULFATE 220 MG CAPSULE PO SCH (09:02)
[2019-09-09] MEDS: fentaNYL INJ 1,250 MCG in SODIUM CHLORIDE 0.9% 225 ML IV PRN (09:03)
[2019-09-09] MEDS: cefTRIAXone 1,000 MG in SYRINGE 1 EACH IV SCH (10:06)
[2019-09-09] MEDS: ENOXAPARIN 60 MG/0.6 ML SYRINGE SUBCUT SCH (13:50)
[2019-09-09] MEDS: NOREPINEPHRINE 16 MG in SODIUM CHLORIDE 0.9% 234 ML IV PRN (15:08)
[2019-09-09 20:12] LABS: Alanine Aminotransferase 16 U/L (13-56); Albumin 1.4 G/DL (3.4-5.0); Alkaline Phosphatase 83 U/L (45-117); Aspartate Amino Transferase 43 U/L (0-37); Bilirubin,Total < 0.39 MG/DL (0.2-1.0); Blood Urea Nitrogen 115 MG/DL (7-18); Calcium 8.3 MG/DL (8.5-10.1); Estimated Glom Filtration Rate 9 ML/MIN; Ferritin 2043.1 ng/ml (8-252); Glucose 138 MG/DL (74-106); Osmolality,Calculated 313.7 MOS/KG (273-304); Total Protein 5.4 G/DL (6.4-8.3)
[2019-09-09] MEDS: MONTELUKAST 10 MG TABLET PO SCH (21:34)
[2019-09-10] MEDS: NOREPINEPHRINE 16 MG in SODIUM CHLORIDE 0.9% 234 ML IV PRN ×2 (00:14→13:17)
[2019-09-10] MEDS: ACETAMINOPHEN 325 MG TABLET PO PRN (00:29)
[2019-09-10 04:31] LABS: Basophils % 0.1 % (0.0-0.8); Hematocrit 27.4 VOL% (35.7-47.0); Hemoglobin 8.7 GM/DL (12.0-16.0); Immature Granulocytes % 3.6 %; Immature Granulocytes Absolute 0.79 #; Lymphocytes # 0.5 10*3/uL (1.4-4.0); Lymphocytes % 2.2 % (21.3-54.2); Mean Corpuscular HGB Conc 31.8 GM/DL (32-36); Mean Corpuscular Volume 94.8 FL (87-102); Mean Platelet Volume 9.9 FL (9.6-12.0); Monocytes % 1.9 % (1.7-12.7); NRBC # 0.02 10*3/uL; Neutrophils % 92.2 % (38.7-73.9); Platelet Count 245 T/CUMM (130-400); Red Blood Count 2.89 MC/CUMM (3.8-5.5); Red Cell Distribution Width 15.5 % (9.3-17.3)
[2019-09-10] MEDS: SODIUM BICARB INJ 50 MEQ in SODIUM CHLORIDE 0.45% 1,000 ML IV SCH (04:43)
[2019-09-10 04:52] LABS: Alanine Aminotransferase 15 U/L (13-56); Albumin 1.4 G/DL (3.4-5.0); Alkaline Phosphatase 102 U/L (45-117); Aspartate Amino Transferase 39 U/L (0-37); Bilirubin,Total < 0.39 MG/DL (0.2-1.0); Blood Urea Nitrogen 115 MG/DL (7-18); Calcium 7.7 MG/DL (8.5-10.1); Estimated Glom Filtration Rate 8 ML/MIN; Ferritin 1977.3 ng/ml (8-252); Glucose 116 MG/DL (74-106); Osmolality,Calculated 312.7 MOS/KG (273-304); Total Protein 5.6 G/DL (6.4-8.3)
[2019-09-10 04:53] LABS: ABG Base Excess -11.5 MMOL/L (-2.5-2.5); ABG HCO3 15.3 MMOL/L (20-26); ABG Oxygen Saturation 98.7 % (95-100); ABG TCO2 16.1 MMOL/L (23-27); Allen Test Positive; Pt O2 Delivery Device Ventilator
[2019-09-10 04:55] LABS: ABG PH 7.162 (7.35-7.45)
[2019-09-10 04:57] LABS: Band Neutrophils 1 % (0-10); Burr Cells Slight; Hypochromasia 1+; Lymphocytes 1 % (20-55); Ovalocytes Slight; Platelet Estimate Adequate; Segmented Neutrophils 94 % (50-85); Total Cells Counted 100
[2019-09-10] MEDS ORDERED: SODIUM BICARBONATE 50 MEQ/50 ML VIAL IV ONE ×2 (05:44→05:58)
[2019-09-10] MEDS ORDERED: SODIUM BICARB INJ 50 MEQ in SODIUM CHLORIDE 0.45% 1,000 ML IV SCH (06:30)
[2019-09-10] MEDS: SODIUM BICARB INJ 100 MEQ in SODIUM CHLORIDE 0.45% 1,000 ML IV SCH (06:39)
[2019-09-10] MEDS: carvediloL 6.25 MG TABLET PO SCH ×2 (08:20→18:15)
[2019-09-10] MEDS: CLOPIDOGREL 75 MG TABLET PO SCH (08:20)
[2019-09-10] MEDS: ASPIRIN CHEW 81 MG TABLET PO SCH (08:20)
[2019-09-10] MEDS: HYDROXYCHLOROQUINE 200 MG TABLET PO SCH ×2 (08:20→20:32)
[2019-09-10] MEDS: AMIODARONE 200 MG TABLET PO SCH ×2 (08:20→20:32)
[2019-09-10] MEDS: PANTOPRAZOLE 40 MG VIAL IV SCH (08:21)
[2019-09-10 10:59] LABS: ABG Base Excess -8.7 MMOL/L (-2.5-2.5); ABG HCO3 17.3 MMOL/L (20-26); ABG Oxygen Saturation 99.3 % (95-100); ABG PCO2 40.2 MM HG (35-48); ABG PH 7.255 (7.35-7.45); ABG TCO2 16.9 MMOL/L (23-27); Allen Test Positive; Pt O2 Delivery Device Ventilator
[2019-09-10] MEDS: cefTRIAXone 1,000 MG in SYRINGE 1 EACH IV SCH (11:57)
[2019-09-10] MEDS: DOXYCYCLINE HYCLATE INJ 100 MG in SODIUM CHLORIDE 0.9% 100 ML IV SCH (12:02)
[2019-09-10] MEDS: ENOXAPARIN 60 MG/0.6 ML SYRINGE SUBCUT SCH (12:03)
[2019-09-10] MEDS ORDERED: FUROSEMIDE INJ 160 MG in SODIUM CHLORIDE 0.9% 50 ML IV ONE (15:00)
[2019-09-10] MEDS: MONTELUKAST 10 MG TABLET PO SCH (20:32)
[2019-09-11] MEDS: DOXYCYCLINE HYCLATE INJ 100 MG in SODIUM CHLORIDE 0.9% 100 ML IV SCH ×3 (00:55→23:50)
[2019-09-11] MEDS: NOREPINEPHRINE 16 MG in SODIUM CHLORIDE 0.9% 234 ML IV PRN ×2 (02:45→18:55)
[2019-09-11] MEDS: SODIUM BICARB INJ 100 MEQ in SODIUM CHLORIDE 0.45% 1,000 ML IV SCH (04:18)
[2019-09-11 04:47] LABS: Basophils % 0.1 % (0.0-0.8); Eosinophils % 0.1 % (0.00-10.9); Hematocrit 24.7 VOL% (35.7-47.0); Hemoglobin 8.1 GM/DL (12.0-16.0); Immature Granulocytes % 2.7 %; Immature Granulocytes Absolute 0.49 #; Lymphocytes # 0.6 10*3/uL (1.4-4.0); Lymphocytes % 3.4 % (21.3-54.2); Mean Corpuscular HGB Conc 32.8 GM/DL (32-36); Mean Corpuscular Volume 91.8 FL (87-102); Mean Platelet Volume 10.5 FL (9.6-12.0); Monocytes % 2.9 % (1.7-12.7); NRBC # 0.03 10*3/uL; Neutrophils % 90.8 % (38.7-73.9); Platelet Count 215 T/CUMM (130-400); Red Blood Count 2.69 MC/CUMM (3.8-5.5); Red Cell Distribution Width 15.2 % (9.3-17.3); White Blood Count 18.3 T/CUMM (4-12)
[2019-09-11 05:13] LABS: Alanine Aminotransferase 18 U/L (13-56); Albumin 1.1 G/DL (3.4-5.0); Alkaline Phosphatase 110 U/L (45-117); Aspartate Amino Transferase 39 U/L (0-37); Bilirubin,Total < 0.39 MG/DL (0.2-1.0); Blood Urea Nitrogen 124 MG/DL (7-18); Estimated Glom Filtration Rate 7 ML/MIN; Ferritin 1828.6 ng/ml (8-252); Glucose 129 MG/DL (74-106); Osmolality,Calculated 314.8 MOS/KG (273-304); Total Protein 5.3 G/DL (6.4-8.3)
[2019-09-11 05:39] LABS: ABG Base Excess -7.2 MMOL/L (-2.5-2.5); ABG HCO3 18.5 MMOL/L (20-26); ABG Oxygen Saturation 99.1 % (95-100); ABG PCO2 41.7 MM HG (35-48); ABG PH 7.273 (7.35-7.45); ABG TCO2 18.1 MMOL/L (23-27)
[2019-09-11 06:43] LABS: Band Neutrophils 2 % (0-10); Hypochromasia 1+; Lymphocytes 3 % (20-55); Ovalocytes Slight; Platelet Estimate Adequate; Segmented Neutrophils 93 % (50-85); Total Cells Counted 100
[2019-09-11 09:02] LABS: Hepatitis B Core IgM Quant 0.17 Index; Hepatitis B Surface Ag Quant 0.15 Index; Hepatitis B Surface Ag Result Negative (Negative); Hepatitis C Virus Ab Quant 0.09 Index; Hepatitis C Virus Ab Result Negative (Negative)
[2019-09-11] MEDS: AMIODARONE 200 MG TABLET PO SCH ×2 (09:26→21:31)
[2019-09-11] MEDS: PANTOPRAZOLE 40 MG VIAL IV SCH (09:27)
[2019-09-11] MEDS: CLOPIDOGREL 75 MG TABLET PO SCH (09:27)
[2019-09-11] MEDS: ZINC SULFATE 220 MG CAPSULE PO SCH (09:27)
[2019-09-11] MEDS: carvediloL 6.25 MG TABLET PO SCH ×2 (09:27→18:34)
[2019-09-11] MEDS: ASPIRIN CHEW 81 MG TABLET PO SCH (09:27)
[2019-09-11] MEDS: HYDROXYCHLOROQUINE 200 MG TABLET PO SCH ×2 (09:27→21:31)
[2019-09-11] MEDS: cefTRIAXone 1,000 MG in SYRINGE 1 EACH IV SCH (12:09)
[2019-09-11] MEDS: ENOXAPARIN 60 MG/0.6 ML SYRINGE SUBCUT SCH (12:12)
[2019-09-11] MEDS: fentaNYL INJ 1,250 MCG in SODIUM CHLORIDE 0.9% 225 ML IV PRN (12:14)
[2019-09-11] MEDS: MONTELUKAST 10 MG TABLET PO SCH (21:31)
[2019-09-12 04:08] LABS: ABG Base Excess -5.6 MMOL/L (-2.5-2.5); ABG HCO3 20.1 MMOL/L (20-26); ABG PCO2 40.6 MM HG (35-48); ABG PH 7.313 (7.35-7.45); ABG PO2 80.6 MM HG (80-95); ABG TCO2 21.4 MMOL/L (23-27)
[2019-09-12] MEDS: SODIUM BICARB INJ 100 MEQ in SODIUM CHLORIDE 0.45% 1,000 ML IV SCH (04:45)
[2019-09-12 05:42] LABS: Basophils % 0.1 % (0.0-0.8); Eosinophils % 0.1 % (0.00-10.9); Hematocrit 23.9 VOL% (35.7-47.0); Immature Granulocytes % 5.9 %; Immature Granulocytes Absolute 0.92 #; Lymphocytes # 0.6 10*3/uL (1.4-4.0); Mean Corpuscular HGB Conc 33.5 GM/DL (32-36); Mean Corpuscular Volume 91.2 FL (87-102); Mean Platelet Volume 10.6 FL (9.6-12.0); NRBC # 0.02 10*3/uL; Neutrophils % 84.9 % (38.7-73.9); Platelet Count 208 T/CUMM (130-400); Red Blood Count 2.62 MC/CUMM (3.8-5.5); White Blood Count 15.7 T/CUMM (4-12)
[2019-09-12 06:00] LABS: Alanine Aminotransferase 24 U/L (13-56); Albumin 1.1 G/DL (3.4-5.0); Alkaline Phosphatase 138 U/L (45-117); Aspartate Amino Transferase 50 U/L (0-37); Bilirubin,Total < 0.39 MG/DL (0.2-1.0); Blood Urea Nitrogen 142 MG/DL (7-18); Calcium 7.9 MG/DL (8.5-10.1); Estimated Glom Filtration Rate 6 ML/MIN; Glucose 134 MG/DL (74-106); Osmolality,Calculated 320.8 MOS/KG (273-304); Total Protein 5.3 G/DL (6.4-8.3)
[2019-09-12 06:12] LABS: Band Neutrophils 6 % (0-10); Lymphocytes 3 % (20-55); Segmented Neutrophils 86 % (50-85); Total Cells Counted 100
[2019-09-12 06:13] LABS: Acanthocytes Few; Burr Cells Few; Hypochromasia Slight; Microcytosis Slight
[2019-09-12 06:14] LABS: Ovalocytes Slight; Platelet Estimate Normal
[2019-09-12] MEDS: carvediloL 6.25 MG TABLET PO SCH ×2 (10:17→16:30)
[2019-09-12] MEDS: AMIODARONE 200 MG TABLET PO SCH ×2 (10:42→21:48)
[2019-09-12] MEDS: HYDROXYCHLOROQUINE 200 MG TABLET PO SCH (10:42)
[2019-09-12] MEDS: PANTOPRAZOLE 40 MG VIAL IV SCH (10:42)
[2019-09-12] MEDS: ASPIRIN CHEW 81 MG TABLET PO SCH (10:42)
[2019-09-12] MEDS: CLOPIDOGREL 75 MG TABLET PO SCH (10:42)
[2019-09-12] MEDS: cefTRIAXone 1,000 MG in SYRINGE 1 EACH IV SCH (12:32)
[2019-09-12] MEDS: DOXYCYCLINE HYCLATE INJ 100 MG in SODIUM CHLORIDE 0.9% 100 ML IV SCH (12:34)
[2019-09-12] MEDS: ENOXAPARIN 60 MG/0.6 ML SYRINGE SUBCUT SCH (12:34)
[2019-09-12] MEDS: PHENYLEPHRINE DRIP 40 MG/250 ML PREMIX IV PRN ×2 (12:59→20:50)
[2019-09-12] MEDS: NOREPINEPHRINE 16 MG in SODIUM CHLORIDE 0.9% 234 ML IV PRN ×2 (15:08→22:53)
[2019-09-12] MEDS ORDERED: HEPARIN 10,000 UNIT/10 ML VIAL IV SCH (17:30)
[2019-09-12] MEDS ORDERED: AMIODARONE 150 MG/3 ML VIAL ONE (20:26)
[2019-09-12] MEDS ORDERED: AMIODARONE 450 MG/9 ML VIAL IV ONE (20:26)
[2019-09-12] MEDS ORDERED: AMIODARONE INJ 150 MG in DEXTROSE 5% 100 ML IV ONE (20:31)
[2019-09-12] MEDS ORDERED: AMIODARONE INJ 450 MG in DEXTROSE 5% 241 ML IV SCH (21:00)
[2019-09-12] MEDS: ACETAMINOPHEN 325 MG TABLET PO PRN (21:05)
[2019-09-12] MEDS: MONTELUKAST 10 MG TABLET PO SCH (21:48)
[2019-09-13] MEDS: DOXYCYCLINE HYCLATE INJ 100 MG in SODIUM CHLORIDE 0.9% 100 ML IV SCH ×2 (00:05→13:28)
[2019-09-13] MEDS: ACETAMINOPHEN 325 MG TABLET PO PRN ×3 (01:10→12:23)
[2019-09-13] MEDS ORDERED: ACETAMINOPHEN 650 MG SUPP RECTAL PRN (01:23)
[2019-09-13] MEDS: AMIODARONE INJ 450 MG in DEXTROSE 5% 241 ML IV SCH ×3 (02:30→18:34)
[2019-09-13 03:54] LABS: Allen Test Positive; Pt O2 Delivery Device Ventilator
[2019-09-13 03:55] LABS: ABG Base Excess -4.9 MMOL/L (-2.5-2.5); ABG HCO3 20.4 MMOL/L (20-26); ABG Oxygen Saturation 99.7 % (95-100); ABG PCO2 39.2 MM HG (35-48); ABG PH 7.329 (7.35-7.45); ABG TCO2 19.5 MMOL/L (23-27)
[2019-09-13 04:39] LABS: Basophils # 0.1 10*3/uL (0.0-0.2); Basophils % 0.3 % (0.0-0.8); Hematocrit 24.3 VOL% (35.7-47.0); Hemoglobin 7.8 GM/DL (12.0-16.0); Immature Granulocytes % 11.1 %; Immature Granulocytes Absolute 1.66 #; Lymphocytes # 1.1 10*3/uL (1.4-4.0); Lymphocytes % 7.2 % (21.3-54.2); Mean Corpuscular HGB Conc 32.1 GM/DL (32-36); Mean Platelet Volume 10.8 FL (9.6-12.0); Monocytes % 6.7 % (1.7-12.7); NRBC # 0.08 10*3/uL; Neutrophils % 74.7 % (38.7-73.9); Platelet Count 236 T/CUMM (130-400); Red Blood Count 2.64 MC/CUMM (3.8-5.5); Red Cell Distribution Width 14.9 % (9.3-17.3); White Blood Count 14.9 T/CUMM (4-12)
[2019-09-13 04:40] LABS: Albumin 1.1 G/DL (3.4-5.0); Bilirubin,Total 1.4 MG/DL (0.2-1.0); Calcium 7.8 MG/DL (8.5-10.1); Osmolality,Calculated 313.7 MOS/KG (273-304); Total Protein 5.3 G/DL (6.4-8.3)
[2019-09-13] MEDS: PHENYLEPHRINE DRIP 40 MG/250 ML PREMIX IV PRN ×2 (05:54→15:00)
[2019-09-13 07:26] LABS: Band Neutrophils 5 % (0-10); Hypochromasia Slight; Lymphocytes 8 % (20-55); Metamyelocytes 5 %; Platelet Estimate Normal; Segmented Neutrophils 69 % (50-85); Total Cells Counted 100
[2019-09-13] MEDS: NOREPINEPHRINE 16 MG in SODIUM CHLORIDE 0.9% 234 ML IV PRN ×2 (07:48→17:45)
[2019-09-13] MEDS: AMIODARONE 200 MG TABLET PO SCH ×2 (08:38→20:53)
[2019-09-13] MEDS: CLOPIDOGREL 75 MG TABLET PO SCH (08:39)
[2019-09-13] MEDS: ZINC SULFATE 220 MG CAPSULE PO SCH (08:39)
[2019-09-13] MEDS: carvediloL 6.25 MG TABLET PO SCH ×2 (08:39→18:33)
[2019-09-13] MEDS: PANTOPRAZOLE 40 MG VIAL IV SCH (08:39)
[2019-09-13] MEDS: ASPIRIN CHEW 81 MG TABLET PO SCH (08:39)
[2019-09-13] MEDS: cefTRIAXone 1,000 MG in SYRINGE 1 EACH IV SCH (11:02)
[2019-09-13] MEDS: ENOXAPARIN 60 MG/0.6 ML SYRINGE SUBCUT SCH (15:02)
[2019-09-13] MEDS: MONTELUKAST 10 MG TABLET PO SCH (20:53)
[2019-09-14] MEDS: DOXYCYCLINE HYCLATE INJ 100 MG in SODIUM CHLORIDE 0.9% 100 ML IV SCH ×2 (00:30→11:42)
[2019-09-14] MEDS: PHENYLEPHRINE DRIP 40 MG/250 ML PREMIX IV PRN ×2 (01:31→13:46)
[2019-09-14] MEDS: NOREPINEPHRINE 16 MG in SODIUM CHLORIDE 0.9% 234 ML IV PRN ×2 (03:28→15:40)
[2019-09-14 04:30] LABS: ABG Base Excess -7.9 MMOL/L (-2.5-2.5); ABG Oxygen Saturation 99.3 % (95-100); ABG PCO2 40.6 MM HG (35-48); ABG PH 7.267 (7.35-7.45); ABG TCO2 17.7 MMOL/L (23-27); Allen Test Positive; Pt O2 Delivery Device Ventilator
[2019-09-14 04:37] LABS: Basophils % 0.1 % (0.0-0.8); Hematocrit 22.6 VOL% (35.7-47.0); Hemoglobin 7.3 GM/DL (12.0-16.0); Immature Granulocytes % 7.8 %; Immature Granulocytes Absolute 1.49 #; Lymphocytes # 1.2 10*3/uL (1.4-4.0); Lymphocytes % 6.5 % (21.3-54.2); Mean Corpuscular HGB Conc 32.3 GM/DL (32-36); Mean Platelet Volume 10.9 FL (9.6-12.0); Monocytes % 7.1 % (1.7-12.7); NRBC # 0.07 10*3/uL; Neutrophils % 78.5 % (38.7-73.9); Platelet Count 247 T/CUMM (130-400); Red Blood Count 2.43 MC/CUMM (3.8-5.5); Red Cell Distribution Width 14.8 % (9.3-17.3)
[2019-09-14 04:57] LABS: Bilirubin,Total 0.7 MG/DL (0.2-1.0); Osmolality,Calculated 310.2 MOS/KG (273-304); Total Protein 4.9 G/DL (6.4-8.3)
[2019-09-14 05:00] LABS: Band Neutrophils 1 % (0-10); Hypochromasia 1+; Lymphocytes 5 % (20-55); Ovalocytes Slight; Platelet Estimate Adequate; Segmented Neutrophils 89 % (50-85); Total Cells Counted 100
[2019-09-14 05:01] LABS: Microcytosis Slight
[2019-09-14] MEDS: carvediloL 6.25 MG TABLET PO SCH ×2 (08:24→17:46)
[2019-09-14] MEDS: CLOPIDOGREL 75 MG TABLET PO SCH (08:25)
[2019-09-14] MEDS: PANTOPRAZOLE 40 MG VIAL IV SCH (08:25)
[2019-09-14] MEDS: AMIODARONE 200 MG TABLET PO SCH ×2 (08:25→20:35)
[2019-09-14] MEDS: ASPIRIN CHEW 81 MG TABLET PO SCH (08:25)
[2019-09-14] MEDS ORDERED: VANCOMYCIN INJ 1,500 MG in SODIUM CHLORIDE 0.9% 500 ML IV ONE (13:00)
[2019-09-14] MEDS: MEROPENEM 500 MG in SODIUM CHLORIDE 0.9% 100 ML IV SCH (13:42)
[2019-09-14] MEDS: cefTRIAXone 1,000 MG in SYRINGE 1 EACH IV SCH (14:51)
[2019-09-14] MEDS: ENOXAPARIN 60 MG/0.6 ML SYRINGE SUBCUT SCH (15:40)
[2019-09-14] MEDS: MONTELUKAST 10 MG TABLET PO SCH (20:35)
[2019-09-15 04:45] LABS: Allen Test Positive; Pt O2 Delivery Device Ventilator
[2019-09-15 04:47] LABS: ABG HCO3 20.9 MMOL/L (20-26); ABG Oxygen Saturation 97.1 % (95-100); ABG PCO2 36.9 MM HG (35-48); ABG PH 7.371 (7.35-7.45); ABG PO2 97.8 MM HG (80-95)
[2019-09-15 05:46] LABS: Basophils % 0.1 % (0.0-0.8); Eosinophils % 0.1 % (0.00-10.9); Hematocrit 21.3 VOL% (35.7-47.0); Hemoglobin 6.7 GM/DL (12.0-16.0); Immature Granulocytes % 7.2 %; Immature Granulocytes Absolute 1.14 #; Lymphocytes # 0.7 10*3/uL (1.4-4.0); Lymphocytes % 4.2 % (21.3-54.2); Mean Corpuscular HGB Conc 31.5 GM/DL (32-36); Mean Corpuscular Volume 95.5 FL (87-102); Mean Platelet Volume 11.3 FL (9.6-12.0); Monocytes % 7.2 % (1.7-12.7); NRBC # 0.12 10*3/uL; Neutrophils % 81.2 % (38.7-73.9); Platelet Count 225 T/CUMM (130-400); Red Blood Count 2.23 MC/CUMM (3.8-5.5); Red Cell Distribution Width 14.9 % (9.3-17.3); White Blood Count 15.9 T/CUMM (4-12)
[2019-09-15 06:04] LABS: Band Neutrophils 2 % (0-10); Hypochromasia 1+; Lymphocytes 3 % (20-55); Microcytosis Slight; Nucleated Red Blood Cells 1 (0-5); Ovalocytes Slight; Platelet Estimate Adequate; Segmented Neutrophils 92 % (50-85); Total Cells Counted 100
[2019-09-15 06:20] LABS: Calcium 7.5 MG/DL (8.5-10.1)
[2019-09-15] MEDS ORDERED: VANCOMYCIN INJ 500 MG in SODIUM CHLORIDE 0.9% 100 ML IV PRN (08:03)
[2019-09-15] MEDS: AMIODARONE 200 MG TABLET PO SCH ×2 (08:15→20:45)
[2019-09-15] MEDS: carvediloL 6.25 MG TABLET PO SCH ×2 (08:15→17:19)
[2019-09-15] MEDS: ASPIRIN CHEW 81 MG TABLET PO SCH (08:15)
[2019-09-15] MEDS: CLOPIDOGREL 75 MG TABLET PO SCH (08:15)
[2019-09-15] MEDS: PANTOPRAZOLE 40 MG VIAL IV SCH (08:15)
[2019-09-15] MEDS: MORPHINE 4 MG/1 ML VIAL IV PRN (11:00)
[2019-09-15] MEDS: PHENYLEPHRINE DRIP 40 MG/250 ML PREMIX IV PRN ×2 (12:26→17:20)
[2019-09-15] MEDS: MEROPENEM 500 MG in SODIUM CHLORIDE 0.9% 100 ML IV SCH (14:00)
[2019-09-15] MEDS: ENOXAPARIN 60 MG/0.6 ML SYRINGE SUBCUT SCH (14:31)
[2019-09-15] MEDS: MONTELUKAST 10 MG TABLET PO SCH (20:45)
[2019-09-16 04:47] LABS: ABG Base Excess -5.5 MMOL/L (-2.5-2.5); ABG HCO3 20.3 MMOL/L (20-26); ABG Oxygen Saturation 97.4 % (95-100); ABG PCO2 41.6 MM HG (35-48); ABG PH 7.307 (7.35-7.45); ABG PO2 107.6 MM HG (80-95); ABG TCO2 21.6 MMOL/L (23-27); Allen Test Positive; Pt O2 Delivery Device Ventilator
[2019-09-16] MEDS: PHENYLEPHRINE DRIP 40 MG/250 ML PREMIX IV PRN ×5 (05:01→21:54)
[2019-09-16 05:13] LABS: Basophils % 0.2 % (0.0-0.8); Eosinophils % 0.1 % (0.00-10.9); Hematocrit 20.7 VOL% (35.7-47.0); Immature Granulocytes % 6.1 %; Immature Granulocytes Absolute 1.22 #; Lymphocytes # 0.5 10*3/uL (1.4-4.0); Lymphocytes % 2.6 % (21.3-54.2); Mean Corpuscular HGB Conc 30.4 GM/DL (32-36); Mean Corpuscular Volume 96.3 FL (87-102); Mean Platelet Volume 11.4 FL (9.6-12.0); Monocytes % 4.5 % (1.7-12.7); NRBC # 0.14 10*3/uL; Neutrophils % 86.5 % (38.7-73.9); Platelet Count 253 T/CUMM (130-400); Red Blood Count 2.15 MC/CUMM (3.8-5.5); Red Cell Distribution Width 14.7 % (9.3-17.3); White Blood Count 19.9 T/CUMM (4-12)
[2019-09-16 05:20] LABS: Osmolality,Calculated 305.1 MOS/KG (273-304)
[2019-09-16 05:32] LABS: Hemoglobin 6.3 GM/DL (12.0-16.0)
[2019-09-16 05:36] LABS: Albumin 1.1 G/DL (3.4-5.0); Bilirubin,Direct 0.12 MG/DL (0.0-0.20); Bilirubin,Indirect 0.7 MG/DL (0.0-1.0); Bilirubin,Total 0.8 MG/DL (0.2-1.0)
[2019-09-16 05:39] LABS: Band Neutrophils 4 % (0-10); Lymphocytes 3 % (20-55); Polychromasia Slight; Segmented Neutrophils 90 % (50-85); Total Cells Counted 100
[2019-09-16 05:40] LABS: Hypochromasia 1+; Microcytosis Slight; Ovalocytes Slight; Platelet Estimate Normal
[2019-09-16] MEDS ORDERED: SODIUM CHLORIDE 0.9% 1,000 ML IV PRN (06:27)
[2019-09-16] MEDS: MORPHINE 4 MG/1 ML VIAL IV PRN (08:51)
[2019-09-16] MEDS: PANTOPRAZOLE 40 MG VIAL IV SCH (08:51)
[2019-09-16] MEDS: carvediloL 6.25 MG TABLET PO SCH ×2 (08:52→16:19)
[2019-09-16] MEDS: CLOPIDOGREL 75 MG TABLET PO SCH (08:52)
[2019-09-16] MEDS: ASPIRIN CHEW 81 MG TABLET PO SCH (08:52)
[2019-09-16] MEDS: AMIODARONE 200 MG TABLET PO SCH ×2 (08:52→21:13)
[2019-09-16] MEDS: MULTIVITAMIN LIQUID (CENTRUM) 60 ML BOTTLE PO SCH (08:55)
[2019-09-16] MEDS ORDERED: VANCOMYCIN INJ 750 MG in SODIUM CHLORIDE 0.9% 250 ML IV PRN (09:30)
[2019-09-16] MEDS ORDERED: TOBRAMYCIN INJ 120 MG in SODIUM CHLORIDE 0.9% 100 ML IV PRN (11:33)
[2019-09-16] MEDS: ENOXAPARIN 60 MG/0.6 ML SYRINGE SUBCUT SCH (12:44)
[2019-09-16] MEDS ORDERED: TOBRAMYCIN IV ONE (17:00)
[2019-09-16] MEDS ORDERED: SODIUM CHLORIDE 0.9% IV ONE (17:00)
[2019-09-16] MEDS ORDERED: VANCOMYCIN INJ 750 MG in SODIUM CHLORIDE 0.9% 250 ML IV ONE (17:00)
[2019-09-16] MEDS: MONTELUKAST 10 MG TABLET PO SCH (21:13)
[2019-09-16] MEDS: PHENYLEPHRINE INJ 160 MG in SODIUM CHLORIDE 0.9% 234 ML IV PRN (23:55)
[2019-09-17 03:52] LABS: ABG Base Excess -6.5 MMOL/L (-2.5-2.5); ABG HCO3 19.9 MMOL/L (20-26); ABG PH 7.284 (7.35-7.45); ABG PO2 87.9 MM HG (80-95); ABG TCO2 21.3 MMOL/L (23-27)
[2019-09-17 04:42] LABS: Basophils # 0.1 10*3/uL (0.0-0.2); Basophils % 0.2 % (0.0-0.8); Eosinophils % 0.1 % (0.00-10.9); Hematocrit 24.1 VOL% (35.7-47.0); Hemoglobin 7.6 GM/DL (12.0-16.0); Immature Granulocytes % 5.1 %; Immature Granulocytes Absolute 1.29 #; Lymphocytes # 0.6 10*3/uL (1.4-4.0); Lymphocytes % 2.4 % (21.3-54.2); Mean Corpuscular HGB Conc 31.5 GM/DL (32-36); Mean Corpuscular Volume 95.3 FL (87-102); Mean Platelet Volume 11.5 FL (9.6-12.0); Monocytes % 3.4 % (1.7-12.7); NRBC # 0.17 10*3/uL; Neutrophils % 88.8 % (38.7-73.9); Platelet Count 250 T/CUMM (130-400); Red Blood Count 2.53 MC/CUMM (3.8-5.5); Red Cell Distribution Width 15.3 % (9.3-17.3); White Blood Count 25.1 T/CUMM (4-12)
[2019-09-17 04:56] LABS: Calcium 8.1 MG/DL (8.5-10.1)
[2019-09-17 05:16] LABS: Band Neutrophils 2 % (0-10); Hypochromasia 1+; Lymphocytes 1 % (20-55); Microcytosis Slight; Nucleated Red Blood Cells 1 (0-5); Ovalocytes Slight; Platelet Estimate Adequate; Segmented Neutrophils 93 % (50-85); Total Cells Counted 100
[2019-09-17] MEDS: carvediloL 6.25 MG TABLET PO SCH ×2 (08:15→16:49)
[2019-09-17] MEDS: PANTOPRAZOLE 40 MG VIAL IV SCH (08:16)
[2019-09-17] MEDS: ASPIRIN CHEW 81 MG TABLET PO SCH (08:16)
[2019-09-17] MEDS: MULTIVITAMIN LIQUID (CENTRUM) 60 ML BOTTLE PO SCH (08:16)
[2019-09-17] MEDS: AMIODARONE 200 MG TABLET PO SCH ×2 (08:16→20:21)
[2019-09-17] MEDS: CLOPIDOGREL 75 MG TABLET PO SCH (08:16)
[2019-09-17] MEDS: PHENYLEPHRINE INJ 160 MG in SODIUM CHLORIDE 0.9% 234 ML IV PRN ×2 (08:55→19:28)
[2019-09-17] MEDS: MONTELUKAST 10 MG TABLET PO SCH (20:22)
[2019-09-17] MEDS: ACETAMINOPHEN 325 MG TABLET PO PRN (20:23)
[2019-09-18 03:32] LABS: ABG Base Excess -6.4 MMOL/L (-2.5-2.5); ABG HCO3 19.1 MMOL/L (20-26); ABG Oxygen Saturation 91.8 % (95-100); ABG PCO2 47.1 MM HG (35-48); ABG PH 7.249 (7.35-7.45); ABG PO2 68.3 MM HG (80-95); ABG TCO2 19.7 MMOL/L (23-27); Allen Test Positive; Pt O2 Delivery Device Ventilator
[2019-09-18 05:08] LABS: Basophils % 0.2 % (0.0-0.8); Hematocrit 22.8 VOL% (35.7-47.0); Hemoglobin 7.2 GM/DL (12.0-16.0); Immature Granulocytes % 6.4 %; Immature Granulocytes Absolute 1.46 #; Lymphocytes # 0.6 10*3/uL (1.4-4.0); Lymphocytes % 2.5 % (21.3-54.2); Mean Corpuscular HGB Conc 31.6 GM/DL (32-36); Mean Corpuscular Volume 94.6 FL (87-102); Mean Platelet Volume 11.3 FL (9.6-12.0); Monocytes % 3.4 % (1.7-12.7); Neutrophils % 87.5 % (38.7-73.9); Platelet Count 249 T/CUMM (130-400); Red Blood Count 2.41 MC/CUMM (3.8-5.5); Red Cell Distribution Width 15.5 % (9.3-17.3); White Blood Count 22.7 T/CUMM (4-12)
[2019-09-18] MEDS: PHENYLEPHRINE INJ 160 MG in SODIUM CHLORIDE 0.9% 234 ML IV PRN ×4 (05:15→20:33)
[2019-09-18 05:20] LABS: Calcium 8.6 MG/DL (8.5-10.1); Osmolality,Calculated 297.2 MOS/KG (273-304)
[2019-09-18 05:29] LABS: Band Neutrophils 2 % (0-10); Hypochromasia 1+; Lymphocytes 4 % (20-55); Ovalocytes Slight; Platelet Estimate Adequate; Segmented Neutrophils 91 % (50-85); Total Cells Counted 100
[2019-09-18 05:30] LABS: Microcytosis Slight
[2019-09-18] MEDS: AMIODARONE 200 MG TABLET PO SCH ×2 (08:30→20:17)
[2019-09-18] MEDS: HEPARIN 5,000 UNIT/1 ML VIAL SUBCUT SCH ×2 (08:30→16:56)
[2019-09-18] MEDS: PANTOPRAZOLE 40 MG VIAL IV SCH (08:30)
[2019-09-18] MEDS: carvediloL 6.25 MG TABLET PO SCH ×2 (08:30→16:12)
[2019-09-18] MEDS: MULTIVITAMIN LIQUID (CENTRUM) 60 ML BOTTLE PO SCH (08:30)
[2019-09-18] MEDS: ASPIRIN CHEW 81 MG TABLET PO SCH (08:30)
[2019-09-18] MEDS: CLOPIDOGREL 75 MG TABLET PO SCH (08:30)
[2019-09-18] MEDS ORDERED: HEPARIN DRIP 25,000 UNITS/500 ML PREMIX IV SCH (09:00)
[2019-09-18] MEDS ORDERED: TOBRAMYCIN INJ 120 MG in SODIUM CHLORIDE 0.9% 100 ML IV ONE (17:00)
[2019-09-18 18:48] VITALS: BP 103/36
[2019-09-18] MEDS: ACETAMINOPHEN 325 MG TABLET PO PRN (20:17)
[2019-09-18] MEDS: MONTELUKAST 10 MG TABLET PO SCH (20:17)
[2019-09-19] MEDS: HEPARIN 5,000 UNIT/1 ML VIAL SUBCUT SCH ×2 (00:18→08:03)
[2019-09-19 05:05] LABS: ABG Base Excess -4.5 MMOL/L (-2.5-2.5); ABG HCO3 20.6 MMOL/L (20-26); ABG Oxygen Saturation 94.5 % (95-100); ABG PH 7.261 (7.35-7.45); ABG PO2 74.2 MM HG (80-95); ABG TCO2 21.5 MMOL/L (23-27); Allen Test Positive; Pt O2 Delivery Device Ventilator
[2019-09-19] MEDS: PHENYLEPHRINE INJ 160 MG in SODIUM CHLORIDE 0.9% 234 ML IV PRN (05:48)
[2019-09-19] MEDS: MULTIVITAMIN LIQUID (CENTRUM) 60 ML BOTTLE PO SCH (08:02)
[2019-09-19] MEDS: ASPIRIN CHEW 81 MG TABLET PO SCH (08:02)
[2019-09-19] MEDS: AMIODARONE 200 MG TABLET PO SCH (08:02)
[2019-09-19] MEDS: carvediloL 6.25 MG TABLET PO SCH (08:02)
[2019-09-19] MEDS: CLOPIDOGREL 75 MG TABLET PO SCH (08:03)
[2019-09-19] MEDS: PANTOPRAZOLE 40 MG VIAL IV SCH (08:03)
[2019-09-19 08:15] LABS: Basophils % 0.1 % (0.0-0.8); Hemoglobin 6.7 GM/DL (12.0-16.0); Immature Granulocytes % 7.4 %; Immature Granulocytes Absolute 1.64 #; Lymphocytes # 0.7 10*3/uL (1.4-4.0); Mean Corpuscular HGB Conc 30.5 GM/DL (32-36); Mean Corpuscular Volume 95.2 FL (87-102); Mean Platelet Volume 10.5 FL (9.6-12.0); NRBC # 0.15 10*3/uL; Neutrophils % 85.5 % (38.7-73.9); Platelet Count 254 T/CUMM (130-400); Red Blood Count 2.31 MC/CUMM (3.8-5.5); Red Cell Distribution Width 15.7 % (9.3-17.3); White Blood Count 22.1 T/CUMM (4-12)
[2019-09-19 08:41] LABS: Calcium 8.4 MG/DL (8.5-10.1); Osmolality,Calculated 288.4 MOS/KG (273-304)
[2019-09-19 13:21] LABS: Band Neutrophils 1 % (0-10); Basophilic Stippling Few; Lymphocytes 2 % (20-55); Macrocytosis 1+; Polychromasia 1+; Segmented Neutrophils 94 % (50-85); Total Cells Counted 100
[2019-09-19 13:22] LABS: Hypochromasia Slight; Microcytosis 1+; Platelet Estimate Adequate
== END 2019-09-19 08:45 | disposition expired | DRG 870 ==
LOC: N.ED 11:52 → N.EDINP 15:39 → SUATTDRO 15:39 → N.ICU 16:27 → N.2E 09-04 15:46 → N.CC 09-06 06:27
PROVIDERS: ADMIT Family Medicine; ATTEND Phlebology